=== PATIENT | male | born 1925 | race Caucasian/White ===

== ENCOUNTER 2017-07-22 15:32 | Observation (INO) | payer OTHER ==
[~2017-07-22] VITALS: Ht 172.7 cm; Wt 80.0 kg
[~2017-07-22 15:32] MED LIST: ALLO100 PO; AMLO10 PO; DIOV160T3 PO; GLYB1TAB50 PO; OMEP20CA5 PO; ZOCO80TA PO
[2017-07-22 15:38] VITALS: BP_SYST 21; BP_SYST 212; BP_DIAS 88; PULSE 42; RESP 14; TEMP 97.9; O2SAT 98
--- NOTE | 2017-07-22 16:20 | PD ---
HPI Chief Complaint: Cardiac Complaint Time Seen by Provider: 16:01 Travel History International Travel<30 days: No Contact w/Intl Traveler<30days: No Traveled to known affect area: No History of Present Illness HPI 89-year-old male presents to the emergency room for evaluation of dizziness. States he has been having dizziness since his supervisory aide's changed his blood pressure medications 2 weeks ago. Dizziness occurs throughout the day and only lasts about 30 seconds. States it resolves spontaneously or sometimes after he eats or takes a few shots of alcohol. Patient thought it may be due to hypoglycemia. He was feeling dizzy this morning so he called his primary care physician who told him to come in to be evaluated. While in the office, it was noted patient's heart rate was extremely low and he was told to come to the emergency room. Weigh Tank Operator is Dr. Akers. Patient believes his amlodipine was stopped and his clonidine was increased from 0.1 to 0.2 mg. He denies chest pain, shortness breath, or any other symptoms at this time. States he didn't even want to come today. PCP is Dr. Jennings. [facility] Past Medical History High Cholesterol: Yes Coronary Artery Disease: Yes (HOLTER MONITOR 2008) Diabetes: Yes Diminished Hearing: No GERD: Yes Hypertension: Yes Immunizations Current: Yes Triglycerides - High: Yes Past Surgical History Other Surgery: Yes (POLYPS REMOVED FROM COLON) Social History Alcohol Use: Yes (OCCASIONAL) Tobacco Use: No Substance Use: No Allergies-Medications (Allergen,Severity, Reaction): Coded Allergies: hydralazine (Verified Allergy, Unknown, 07/22/17) Reported Meds & Prescriptions Reported Meds & Active Scripts Active Reported Multi-Vitamin Daily (Multiple Vitamin) 1 Tab Tab 1 Tab PO DAILY Losartan (Losartan Potassium) 100 Mg Tab 100 Mg PO DAILY Lorazepam 0.5 Mg Tab 0.5 Mg PO DAILY PRN Hydrocodone-Acetaminophen 5-325 mg Tab 1 Tab PO Q4H PRN Glipizide ER (Glipizide) 2.5 Mg Linda 2.5 Mg PO DAILY Take with breakfast or first main meal of the day Clonidine (Clonidine HCl) 0.2 Mg Tab 0.2 Mg PO BID Calcitriol 0.25 Mcg Cap 0.25 Mcg PO DAILY Atorvastatin (Atorvastatin Calcium) 80 Mg Tab 80 Mg PO HS Aspirin 325 Mg Tab 325 Mg PO DAILY Allopurinol 100 Mg Tab 100 Mg PO DAILY Review of Systems Except as stated in HPI: all other systems reviewed are Neg Physical Exam Narrative GENERAL: Well-nourished, well-developed elderly male appearing younger than his stated age. Afebrile. Ambulatory. SKIN: Focused skin assessment warm/dry. HEAD: Normocephalic. EYES: No scleral icterus. No injection or drainage. NECK: Supple, trachea midline. No JVD or lymphadenopathy. CARDIOVASCULAR: Bradycardia. Regular rhythm without murmurs, gallops, or rubs. RESPIRATORY: Breath sounds equal bilaterally. No accessory muscle use. NEUROLOGICAL: Awake and alert. Cranial nerves II through XII intact. Motor and sensory grossly within normal limits. Five out of 5 muscle strength in all muscle groups. Normal speech. Data Data Last Documented VS Vital Signs Date Time Temp Pulse Resp B/P (MAP) Pulse Ox O2 Delivery O2 Flow Rate FiO2 07/22/17 17:11 40 18 170/72 (104) 100 Room Air 07/22/17 15:38 97.9 Orders Orders Electrocardiogram (07/22/17 15:44) Ckmb (Isoenzyme) Profile (07/22/17 15:44) Complete Blood Count With Diff (07/22/17 15:44) Comprehensive Metabolic Panel (07/22/17 15:44) Magnesium (Mg) (07/22/17 15:44) Prothrombin Time / Inr (Pt) (07/22/17 15:44) Act Partial Throm Time (Ptt) (07/22/17 15:44) Troponin I (07/22/17 15:44) Chest, Pa & Lat (07/22/17 15:44) Enalaprilat Inj (Vasotec Inj) (07/22/17 17:00) CKMB (07/22/17 16:15) CKMB% (07/22/17 16:15) Consult Cardiology (07/22/17 ) Equip, Isolation Cart (07/22/17 17:47) Admit Order (Ed Use Only) (07/22/17 17:57) Labs Laboratory Tests Test 07/22/17 16:15 White Blood Count 7.4 TH/MM3 Red Blood Count 3.45 MIL/MM3 Hemoglobin 10.8 GM/DL Hematocrit 33.4 % Mean Corpuscular Volume 96.7 FL Mean Corpuscular Hemoglobin 31.4 PG Mean Corpuscular Hemoglobin Concent 32.5 % Red Cell Distribution Width 15.5 % Platelet Count 137 TH/MM3 Mean Platelet Volume 11.8 FL Neutrophils (%) (Auto) 71.8 % Lymphocytes (%) (Auto) 20.6 % Monocytes (%) (Auto) 5.4 % Eosinophils (%) (Auto) 1.3 % Basophils (%) (Auto) 0.9 % Neutrophils # (Auto) 5.3 TH/MM3 Lymphocytes # (Auto) 1.5 TH/MM3 Monocytes # (Auto) 0.4 TH/MM3 Eosinophils # (Auto) 0.1 TH/MM3 Basophils # (Auto) 0.1 TH/MM3 CBC Comment DIFF FINAL Differential Comment Prothrombin Time 10.1 SEC Prothromb Time International Ratio 1.0 RATIO Activated Partial Thromboplast Time 28.7 SEC Blood Urea Nitrogen 62 MG/DL Creatinine 2.62 MG/DL Random Glucose 89 MG/DL Total Protein 6.6 GM/DL Albumin 3.0 GM/DL Calcium Level 7.4 MG/DL Magnesium Level 1.2 MG/DL Alkaline Phosphatase 91 U/L Aspartate Amino Transf (AST/SGOT) 26 U/L Alanine Aminotransferase (ALT/SGPT) 22 U/L Total Bilirubin 0.3 MG/DL Sodium Level 144 MEQ/L Potassium Level 5.5 MEQ/L Chloride Level 115 MEQ/L Carbon Dioxide Level 22.5 MEQ/L Anion Gap 7 MEQ/L Estimat Glomerular Filtration Rate 23 ML/MIN Protein Corrected Calcium 7.7 MG/DL Total Creatine Kinase 114 U/L Creatine Kinase MB 1.7 NG/ML Troponin I 0.08 NG/ML MDM Medical Decision Making Medical Screen Exam Complete: Yes Emergency Medical Condition: Yes Medical Record Reviewed: Yes Differential Diagnosis Bradycardia, dizziness, medication side effect Narrative Course 89-year-old male presents to the emergency room for evaluation of symptomatic bradycardia. States he has been feeling dizzy off and on for the past 2 weeks, especially in the morning. He went to his primary care physician's office earlier today to be evaluated for dizziness and he was noted to have an extremely low heart rate and told to go to the ED. Patient states his medication was just adjusted by his supervisory aide, Dr. Aguilar, 2 weeks ago. Amlodipine was stopped and clonidine was increased from 0.1 to 0.2 mg. Denies any chest pain, dizziness, or shortness of breath during evaluation. EKG shows sinus bradycardia with a rate of [address] changes. IV access established and basic labs obtained. Patient placed on cardiac telemetry. CBC is essentially unremarkable. CMP shows mildly elevated potassium of 5.5, elevated creatinine 2.62, low calcium of 7.4, elevated troponin of 0.08. I spoke to the supervisory aide on-call for Dr. Aguilar, Dr. Resendiz, who states patient should be monitored for improvement of bradycardia after cessation of medications and if that does not work, he will likely require pacemaker. Patient was initially resistant to staying but was counseled on the dangers of persistent bradycardia. I spoke to Dr. Godinez who agrees to admit this patient to her service. Diagnosis Primary Impression: Symptomatic sinus bradycardia Condition: Stable Shelley Jin Jul 22, 2017 16:20
[2017-07-22] MEDS ORDERED: LOSA100T PO (16:36)
[2017-07-22] MEDS ORDERED: ALLO100T PO (16:36)
[2017-07-22] MEDS ORDERED: CLON0.2T PO (16:36)
[2017-07-22] MEDS ORDERED: HYDR-3516 PO (16:36)
[2017-07-22] MEDS ORDERED: ASPI-183 PO (16:36)
[2017-07-22] MEDS ORDERED: LORA0.5T PO (16:36)
[2017-07-22] MEDS ORDERED: GLIP1TAB60 PO (16:36)
[2017-07-22] MEDS ORDERED: MULT-65 PO (16:36)
[2017-07-22] MEDS ORDERED: ATOR80TA45 PO (16:36)
[2017-07-22] MEDS ORDERED: CALC0.25 PO (16:36)
--- NOTE | 2017-07-22 16:39 | RADRPT ---
EXAM DATE/TIME: 07/22/2017 16:01 [place] COMPARISON: No previous studies available for comparison. INDICATIONS : Dizziness for 1 week. MEDICAL HISTORY : Hypertension. Hypercholesterolemia. Coronary artery disease. Diabetes. SURGICAL HISTORY : None. ENCOUNTER: Initial ACUITY: 1 week PAIN SCORE: 0/10 LOCATION: Bilateral chest FINDINGS: Mild airspace disease at the left lung base. Cardiac silhouette is minimally enlarged. Bony thorax is intact. CONCLUSION: 1. Trace left lung base airspace disease, likely atelectasis. 2. Mild cardiomegaly. Ike Krueger MD on July 22, 2017 at 16:36 Board Certified Radiologist. This report was verified electronically.
[2017-07-22 16:51] LABS: AUTOMATED NEUTROPHIL # 5.3 TH/MM3 (1.8-7.7); BASOPHIL # 0.1 TH/MM3 (0-0.2); BASOPHIL % 0.9 % (0.0-2.0); EOSINOPHIL # 0.1 TH/MM3 (0-0.4); EOSINOPHIL % 1.3 % (0.0-4.0); HEMATOCRIT 33.4 % (39.0-51.0); HEMOGLOBIN 10.8 GM/DL (13.0-17.0); LYMPH % 20.6 % (9.0-44.0); LYMPHOCYTE # 1.5 TH/MM3 (1.0-4.8); MEAN CELL VOLUME 96.7 FL (80.0-100.0); MEAN CORPUSCULAR HEMOGLOBIN 31.4 PG (27.0-34.0); MEAN CORPUSCULAR HGB CONC 32.5 % (32.0-36.0); MEAN PLATELET VOLUME 11.8 FL (7.0-11.0); MONO % 5.4 % (0.0-8.0); MONOCYTE # 0.4 TH/MM3 (0-0.9); NEUT % 71.8 % (16.0-70.0); PLATELET COUNT 137 TH/MM3 (150-450); RED BLOOD COUNT 3.45 MIL/MM3 (4.50-5.90); RED CELL DISTRIBUTION WIDTH 15.5 % (11.6-17.2); WHITE BLOOD COUNT 7.4 TH/MM3 (4.0-11.0)
[2017-07-22 16:58] LABS: PROTHROMBIN TIME - PATIENT 10.1 SEC (9.8-11.6)
[2017-07-22] MEDS ORDERED: ENALAPRILAT 1.25 MG/ML VIAL IV PUSH ONE (17:00)
[2017-07-22 17:11] VITALS: BP 170/72; PULSE 40; RESP 18; O2SAT 100
[2017-07-22 17:11] LABS: ALKALINE PHOSPHATASE 91 U/L (45-117); ALT (GPT) 22 U/L (12-78); AST (GOT) 26 U/L (15-37); BICARBONATE 22.5 MEQ/L (21.0-32.0); BLOOD UREA NITROGEN 62 MG/DL (7-18); CALCIUM 7.4 MG/DL (8.5-10.1); CALCIUM-PROTEIN CORRECTED 7.7 MG/DL (8.5-10.1); CHLORIDE 115 MEQ/L (98-107); CREATININE 2.62 MG/DL (0.60-1.30); GLOMERULAR FILTRATION RATE 23 ML/MIN (>89); GLUCOSE,RANDOM 89 MG/DL (74-106); MAGNESIUM 1.2 MG/DL (1.5-2.5); SODIUM (NA) 144 MEQ/L (136-145); TOTAL BILIRUBIN ADULT 0.3 MG/DL (0.2-1.0); TOTAL PROTEIN 6.6 GM/DL (6.4-8.2); TROPONIN I 0.08 NG/ML (0.02-0.05)
--- NOTE | 2017-07-22 17:52 | PD ---
Data Data Last Documented VS Vital Signs Date Time Temp Pulse Resp B/P (MAP) Pulse Ox O2 Delivery O2 Flow Rate FiO2 07/22/17 17:11 40 18 170/72 (104) 100 Room Air 07/22/17 15:38 97.9 Orders Orders Electrocardiogram (07/22/17 15:44) Ckmb (Isoenzyme) Profile (07/22/17 15:44) Complete Blood Count With Diff (07/22/17 15:44) Comprehensive Metabolic Panel (07/22/17 15:44) Magnesium (Mg) (07/22/17 15:44) Prothrombin Time / Inr (Pt) (07/22/17 15:44) Act Partial Throm Time (Ptt) (07/22/17 15:44) Troponin I (07/22/17 15:44) Chest, Pa & Lat (07/22/17 15:44) Enalaprilat Inj (Vasotec Inj) (07/22/17 17:00) CKMB (07/22/17 16:15) CKMB% (07/22/17 16:15) Consult Cardiology (07/22/17 ) Equip, Isolation Cart (07/22/17 17:47) Labs Laboratory Tests Test 07/22/17 16:15 White Blood Count 7.4 TH/MM3 Red Blood Count 3.45 MIL/MM3 Hemoglobin 10.8 GM/DL Hematocrit 33.4 % Mean Corpuscular Volume 96.7 FL Mean Corpuscular Hemoglobin 31.4 PG Mean Corpuscular Hemoglobin Concent 32.5 % Red Cell Distribution Width 15.5 % Platelet Count 137 TH/MM3 Mean Platelet Volume 11.8 FL Neutrophils (%) (Auto) 71.8 % Lymphocytes (%) (Auto) 20.6 % Monocytes (%) (Auto) 5.4 % Eosinophils (%) (Auto) 1.3 % Basophils (%) (Auto) 0.9 % Neutrophils # (Auto) 5.3 TH/MM3 Lymphocytes # (Auto) 1.5 TH/MM3 Monocytes # (Auto) 0.4 TH/MM3 Eosinophils # (Auto) 0.1 TH/MM3 Basophils # (Auto) 0.1 TH/MM3 CBC Comment DIFF FINAL Differential Comment Prothrombin Time 10.1 SEC Prothromb Time International Ratio 1.0 RATIO Activated Partial Thromboplast Time 28.7 SEC Blood Urea Nitrogen 62 MG/DL Creatinine 2.62 MG/DL Random Glucose 89 MG/DL Total Protein 6.6 GM/DL Albumin 3.0 GM/DL Calcium Level 7.4 MG/DL Magnesium Level 1.2 MG/DL Alkaline Phosphatase 91 U/L Aspartate Amino Transf (AST/SGOT) 26 U/L Alanine Aminotransferase (ALT/SGPT) 22 U/L Total Bilirubin 0.3 MG/DL Sodium Level 144 MEQ/L Potassium Level 5.5 MEQ/L Chloride Level 115 MEQ/L Carbon Dioxide Level 22.5 MEQ/L Anion Gap 7 MEQ/L Estimat Glomerular Filtration Rate 23 ML/MIN Protein Corrected Calcium 7.7 MG/DL Total Creatine Kinase 114 U/L Creatine Kinase MB 1.7 NG/ML Troponin I 0.08 NG/ML MDM Supervised Visit with HOLLIE: Yes Narrative Course The history, exam, and medical decision-making in the associated mid-level provider note were completed with my assistance. I reviewed and agree with the findings presented. I attest that I had a [id number] encounter with the patient on the same day, and personally performed and documented my assessment and findings in the medical record. *My assessment and Findings: 89-year-old male with symptomatic sinus bradycardia. Looks well. Likely due to medication effect. We'll admit for observation, reassess. Condition: Stable Mitchell Ho MD Jul 22, 2017 17:52
[2017-07-22] MEDS ORDERED: SODIUM CHLORIDE 0.9% FLUSH 10 ML FLUSH IV FLUSH PRN (18:00)
[2017-07-22] MEDS ORDERED: NALOXONE HCL 0.4 MG/ML AMP IV PUSH PRN (18:00)
[2017-07-22] MEDS ORDERED: CALCIUM GLUCONATE INJ 2 GM in DEXTROSE 5% IN WATER 100ML INJ 100 ML IV ONE ×2 (18:00)
[2017-07-22] MEDS ORDERED: ATROPINE SULFATE 1 MG/ML VIAL IV PUSH PRN (18:00)
[2017-07-22] MEDS: MAGNESIUM SULFATE 1 GM PREMIX 100 ML IV SCH (19:41)
[2017-07-22] MEDS ORDERED: GLUCAGON 1 MG/ML VIAL OTHER PRN (20:30)
[2017-07-22] MEDS ORDERED: DEXTROSE 50% IN WATER 50 ML VIAL(D50) IV PUSH PRN (20:30)
[2017-07-22] MEDS: INSULIN ASPART SUPPLEMENTAL SCALE SQ SCH (21:00)
[2017-07-22 21:09] VITALS: PULSE 88; RESP 15; TEMP 97.7; O2SAT 99
[2017-07-22] MEDS: SODIUM CHLORIDE 0.9% FLUSH 10 ML FLUSH IV FLUSH SCH (21:43)
[2017-07-22 22:02] VITALS: BP 163/88
[2017-07-23] VITALS (11 sets, daily range): BP systolic 136–220; BP diastolic 76–94; PULSE 43–110; RESP 15–24; TEMP 97.5–98.3; O2SAT 95–97
[2017-07-23 00:30] LABS: TROPONIN I 0.07 NG/ML (0.02-0.05)
[2017-07-23] MEDS ORDERED: NIFEdipine 30 MG SUSTAINED RELEASE TAB PO ONE ×2 (01:30→06:00)
--- NOTE | 2017-07-23 01:37 | HHI.HP ---
[facility] Primary Care Physician Shaggy Jennings MD Admission Diagnosis symptomatic bradycardia Diagnoses: (1) Symptomatic sinus bradycardia Chief Complaint: Dizziness and lightheadedness Travel History International Travel<30 Days: No Contact w/Intl Traveler <30 Da: No Traveled to Known Affected Are: No History of Present Illness Mr. Miller is a very pleasant 89 year-old male with a history of hyperlipidemia , hypertension, GERD, and type 2 diabetes mellitus who presented to the emergency room on 07/22/2017 to follow-up on an abnormal EKG done at his primary care physician Dr. Jennings's office. In the emergency room, a 12-lead EKG showed sinus bradycardia with right bundle branch block and a ventricular rate of 38 bpm. He is admitted for observation under the hospitalist team management for stabilization. The patient is seen in the CDU. He tells me that his amlodipine was discontinued because it caused severe ankle swelling and clonidine was doubled about 2-3 weeks ago by his digital communications manager Dr. Aguilar. Within days of this change, he noticed increasing episodes of dizziness that mostly occurred when he went from a sitting to standing position. He said he could feel his blood rising from his chest all the way up to his head and then he became extremely lightheaded and had to sit back down. He thought that his blood sugar might be low and so he would eat a piece of candy. His symptoms became progressively more frequent and he attempted to contact his digital communications manager. He had trouble reaching his digital communications manager and went to his primary care physician instead. When she saw what his heart rate was, she advised him to come straight to the emergency department for evaluation. His symptoms were not accompanied by diaphoresis, chest pain, shortness of breath, nausea, or vomiting. He denies any recent illness such as cold symptoms, cough, fever, or diarrhea. He states his symptoms have improved since he's been here at the hospital. Review of Systems Except as stated in HPI: all other systems reviewed are Neg Past Family Social History Past Medical History Hyperlipidemia Hypertension Gastroesophageal reflux disease Diabetes mellitus . Past Surgical History Cataract surgery, bilaterally Vasectomy . Reported Medications Reported Meds & Active Scripts Active Reported Multi-Vitamin Daily (Multiple Vitamin) 1 Tab Tab 1 Tab PO DAILY Losartan (Losartan Potassium) 100 Mg Tab 100 Mg PO DAILY Lorazepam 0.5 Mg Tab 0.5 Mg PO DAILY PRN Hydrocodone-Acetaminophen 5-325 mg Tab 1 Tab PO Q4H PRN Glipizide ER (Glipizide) 2.5 Mg Linda 2.5 Mg PO DAILY Take with breakfast or first main meal of the day Clonidine (Clonidine HCl) 0.2 Mg Tab 0.2 Mg PO BID Calcitriol 0.25 Mcg Cap 0.25 Mcg PO DAILY Atorvastatin (Atorvastatin Calcium) 80 Mg Tab 80 Mg PO HS Aspirin 325 Mg Tab 325 Mg PO DAILY Allopurinol 100 Mg Tab 100 Mg PO DAILY . Allergies: Coded Allergies: hydralazine (Verified Allergy, Unknown, 07/22/17) Active Ordered Medications Current Medications Enalaprilat (Vasotec Inj) 1.25 mg ONCE ONCE IV PUSH ; Start 07/22/17 at 17:00 ; Stop 07/22/17 at 17:01; Status DC Sodium Chloride (NS Flush) 2 ml UNSCH PRN IV FLUSH FLUSH AFTER USING IV ACCESS ; Start 07/22/17 at 18:00 Sodium Chloride (NS Flush) 2 ml BID IV FLUSH Last administered on 07/22/17t 21 :43; Start 07/22/17 at 21:00 Naloxone HCl (Narcan Inj) 0.4 mg UNSCH PRN IV PUSH SEE LABEL COMMENTS; Start 07/22/17 at 18:00 Atropine Sulfate (Atropine Inj) 0.5 mg Q2H PRN IV PUSH hr<35 or HR< 40symptomatic; Start 07/22/17 at 18:00 Magnesium Sulfate/ Dextrose 100 ml @ 100 mls/hr Q1H IV Last administered on 19:41; Start 07/22/17 at 18:00; Stop 07/22/17 at 19:59; Status DC Calcium Gluconate 2 gm/Dextrose 120 ml @ 120 mls/hr ONCE ONCE IV Last administered on 07/23/17 00:05; Start 07/22/17 at 18:00; Stop 07/22/17 at 18 :59; Status DC Dextrose (D50w (Vial) Inj) 50 ml UNSCH PRN IV PUSH HYPOGLYCEMIA-SEE COMMENTS; Start 07/22/17 at 20:30 Glucagon (Glucagon Inj) 1 mg UNSCH PRN OTHER HYPOGLYCEMIA-SEE COMMENTS; Start 07/22/17 at 20:30 Insulin Aspart (NovoLOG SUPPLEMENTAL SCALE) 1 ACHS SLIDING SCALE SQ ; Start at 21:00 Nifedipine (Procardia Xl) 30 mg ONCE ONCE PO Last administered on 07/23/17t 01:58; Start 07/23/17 at 01:30; Stop 07/23/17 at 01:36; Status DC . Family History Mother from natural causes His oldest sister had breast cancer Father age 65 from CVA . Social History Tobacco: Smoked from ages 20 through 28, 2 packs per day Alcohol: Occasional social use - especially when he goes out dancing Illicit Drugs: Denies . Physical Exam Vital Signs Vital Signs Date Time Temp Pulse Resp B/P (MAP) Pulse Ox O2 Delivery O2 Flow Rate FiO2 07/23/17 01:06 97.6 50 15 220/94 (136) 95 07/22/17 22:02 163/88 (113) 07/22/17 21:09 97.7 88 15 99 07/22/17 17:11 40 18 170/72 (104) 100 Room Air 07/22/17 17:02 39 17 99 Room Air 07/22/17 15:38 97.9 42 14 212/88 (129) 98 Physical Exam GENERAL: This is a very pleasant well-nourished, well-developed patient, in no apparent distress. SKIN: No rashes, ecchymoses or lesions. Cool and dry. HEAD: Atraumatic. Normocephalic. EYES: No scleral icterus. No injection or drainage. ENT: Nose without bleeding, purulent drainage. NECK: Trachea midline. No JVD. CARDIOVASCULAR: Bradycardic rate and normal rhythm without murmurs, gallops, or rubs. RESPIRATORY: Clear to auscultation. Breath sounds equal bilaterally. No wheezes , rales, or rhonchi. GASTROINTESTINAL: Abdomen soft, non-tender, nondistended. No guarding. MUSCULOSKELETAL: Extremities without clubbing, cyanosis, or edema. No calf tenderness. NEUROLOGICAL: Awake and alert. Motor and sensory grossly within normal limits. Normal speech. . Laboratory Laboratory Tests Test 07/22/17 16:15 07/22/17 23:18 White Blood Count 7.4 Red Blood Count 3.45 Hemoglobin 10.8 Hematocrit 33.4 Mean Corpuscular Volume 96.7 Mean Corpuscular Hemoglobin 31.4 Mean Corpuscular Hemoglobin Concent 32.5 Red Cell Distribution Width 15.5 Platelet Count 137 Mean Platelet Volume 11.8 Neutrophils (%) (Auto) 71.8 Lymphocytes (%) (Auto) 20.6 Monocytes (%) (Auto) 5.4 Eosinophils (%) (Auto) 1.3 Basophils (%) (Auto) 0.9 Neutrophils # (Auto) 5.3 Lymphocytes # (Auto) 1.5 Monocytes # (Auto) 0.4 Eosinophils # (Auto) 0.1 Basophils # (Auto) 0.1 CBC Comment DIFF FINAL Differential Comment Prothrombin Time 10.1 Prothromb Time International Ratio 1.0 Activated Partial Thromboplast Time 28.7 Blood Urea Nitrogen 62 Creatinine 2.62 Random Glucose 89 Total Protein 6.6 Albumin 3.0 Calcium Level 7.4 Magnesium Level 1.2 Alkaline Phosphatase 91 Aspartate Amino Transf (AST/SGOT) 26 Alanine Aminotransferase (ALT/SGPT) 22 Total Bilirubin 0.3 Sodium Level 144 Potassium Level 5.5 Chloride Level 115 Carbon Dioxide Level 22.5 Anion Gap 7 Estimat Glomerular Filtration Rate 23 Protein Corrected Calcium 7.7 Total Creatine Kinase 114 54 Creatine Kinase MB 1.7 Troponin I 0.08 0.07 Result Diagram: 07/22/17 1615 07/22/17 1615 Imaging Last Impressions Chest X-Ray 07/22/17 1544 Signed Impressions: Service Date/Time: Saturday, July 22, 2017 16:01 - CONCLUSION: 1. Trace left lung base airspace disease, likely atelectasis. 2. Mild cardiomegaly. Ike Krueger MD . Caprini VTE Risk Assessment Caprini VTE Risk Assessment: Mod/High Risk (score >= 2) Caprini Risk Assessment Model Point Value = 1 Point Value = 2 Point Value = 3 Point Value = 5 Age 41-60 Minor surgery BMI > 25 kg/m2 Swollen legs Varicose veins or History of unexplained or recurrent spontaneous Oral contraceptives or hormone replacement Sepsis (< 1 month) Serious lung disease, including pneumonia (< 1 month) Abnormal pulmonary function Acute myocardial infarction Congestive heart failure (< 1 month) History of inflammatory bowel disease Medical patient at bed rest Age 61-74 Arthroscopic surgery Major open surgery (> 45 min) Laparoscopic surgery (> 45 min) Malignancy Confined to bed (> 72 hours) Immobilizing plaster cast Central venous access Age >= 75 History of VTE Family history of VTE Factor V Leiden Prothrombin [id number] Lupus anticoagulant Anticardiolipin antibodies Elevated serum homocysteine Heparin-induced thrombocytopenia Other congenital or acquired thrombophilia Stroke (< 1 month) Elective arthroplasty Hip, pelvis, or leg fracture Acute spinal cord injury (< 1 month) Prophylaxis Regimen Total Risk Factor Score Risk Level Prophylaxis Regimen 0-1 Low Early ambulation 2 Moderate Order ONE of the following: *Sequential Compression Device (SCD) *Heparin 5000 units SQ BID 3-4 Higher Order ONE of the following medications: *Heparin 5000 units SQ TID *Enoxaparin/Lovenox 40 mg SQ daily (WT < 150 kg, CrCl > 30 mL/min) *Enoxaparin/Lovenox 30 mg SQ daily (WT < 150 kg, CrCl > 10-29 mL/min) *Enoxaparin/Lovenox 30 mg SQ BID (WT < 150 kg, CrCl > 30 mL/min) AND/OR *Sequential Compression Device (SCD) 5 or more Highest Order ONE of the following medications: *Heparin 5000 units SQ TID (Preferred with Epidurals) *Enoxaparin/Lovenox 40 mg SQ daily (WT < 150 kg, CrCl > 30 mL/min) *Enoxaparin/Lovenox 30 mg SQ daily (WT < 150 kg, CrCl > 10-29 mL/min) *Enoxaparin/Lovenox 30 mg SQ BID (WT < 150 kg, CrCl > 30 mL/min) AND *Sequential Compression Device (SCD) Assessment and Plan Problem List: (1) Symptomatic sinus bradycardia ICD Code: R00.1 - Bradycardia, unspecified Status: Acute (2) Type 2 diabetes mellitus ICD Code: E11.9 - Type 2 diabetes mellitus without complications Status: Chronic (3) Hypertensive urgency ICD Code: I16.0 - Hypertensive urgency (4) Hypomagnesemia ICD Code: E83.42 - Hypomagnesemia (5) Hyperkalemia ICD Code: E87.5 - Hyperkalemia (6) Elevated troponin I level ICD Code: R74.8 - Abnormal levels of other serum enzymes (7) Acute on chronic renal failure ICD Code: N17.9 - Acute kidney failure, unspecified; N18.9 - Chronic kidney disease, unspecified Assessment and Plan Mr. Miller is a very pleasant 89 year-old male with a history of hyperlipidemia , hypertension, GERD, and type 2 diabetes mellitus who presented to the emergency room on 07/22/2017 to follow-up on an abnormal EKG done at his primary care physician Dr. Jennings's office. In the emergency room, a 12-lead EKG showed sinus bradycardia with right bundle branch block and a ventricular rate of 38 bpm. He is admitted for observation under the hospitalist team management for stabilization. Symptomatic bradycardia - Hold home clonidine - Heart rate improved at the time of my visit - mid to high 50s to 60s - patient no longer symptomatic - consult Cardiology - ER PA discussed with Dr. Resendiz recreational sports director for Dr. Aguilar - continuous cardiac telemetry to monitor rate and rhythm - Atropine 0.5 mg IV push every 2 hours as needed Elevated Troponin I - Troponin I mildly elevated 0.08, 0.07 - likely secondary to renal disease; CK within normal parameters - 12 lead EKG personally reviewed; shows sinus dedrick rate of 38 with right BBB; no ischemic changes seen - will trend cardiac enzymes and EKGs to r/o ACS Type 2 Diabetes Mellitus - Resume home Glipizide - Heart healthy diet with 1800 ADA restrictions - Accu-Cheks before meals and at bedtime with low-dose NovoLog sliding scale coverage - Hypoglycemia protocol - Monitor trends and blood glucose readings and adjust treatments as indicated Hypertensive urgency - BP 212/88 on admission; 220/94 shortly after my visit - I have added Procardia XL 30 mg p.o. x on dose; hypertension is difficult to manage given patient's hydralazine allergy, symptomatic bradycardia, adverse reaction to amlodipine (ankle swelling), and renal disease - will follow trends in blood pressure and adjust accordingly - appreciate any recommendations from cardiology Hypomagnesemia - Initial magnesium level I.2 - Replaced in ED - Recheck in a.m. and follow results - replace as indicated Hyperkalemia - Initial potassium was 5.5 - however specimen was hemolyzed - Recheck with BMP in a.m. and follow results - treat as indicated Acute on chronic kidney failure - Uncertain of her baseline - worse when compared to labs from 2009 - BUN 62, creatinine 2.62, estimated GFR 23 - Hold losartan - Avoid nephrotoxins - Repeat BMP in a.m. and follow results - consult nephrology if needed Mild Anemia - most likely related to chronic kidney disease Mild thrombocytopenia - Labs look relatively stable when compared to 2010 labs - Hemoglobin 10.8, hematocrit 33.4, platelets 137,000 - Monitor CBC and follow results/trends DVT prophylaxis - Heparin 5000 units subq q8h Discussed Condition With Dr. Pacheco, RN, and patient . Yuly Agrawal Jul 23, 2017 01:37
[2017-07-23] MEDS: MAGNESIUM SULFATE 1 GM PREMIX 100 ML IV SCH (03:53)
[2017-07-23] MEDS: INSULIN ASPART SUPPLEMENTAL SCALE SQ SCH ×4 (08:00→21:00)
[2017-07-23 08:13] LABS: AUTOMATED NEUTROPHIL # 5.7 TH/MM3 (1.8-7.7); BASOPHIL # 0.1 TH/MM3 (0-0.2); EOSINOPHIL # 0.1 TH/MM3 (0-0.4); EOSINOPHIL % 1.6 % (0.0-4.0); HEMATOCRIT 30.4 % (39.0-51.0); LYMPH % 17.8 % (9.0-44.0); LYMPHOCYTE # 1.4 TH/MM3 (1.0-4.8); MEAN CELL VOLUME 95.4 FL (80.0-100.0); MEAN CORPUSCULAR HEMOGLOBIN 31.6 PG (27.0-34.0); MEAN CORPUSCULAR HGB CONC 33.1 % (32.0-36.0); MONO % 5.5 % (0.0-8.0); MONOCYTE # 0.4 TH/MM3 (0-0.9); NEUT % 74.1 % (16.0-70.0); PLATELET COUNT 107 TH/MM3 (150-450); RED BLOOD COUNT 3.18 MIL/MM3 (4.50-5.90); WHITE BLOOD COUNT 7.7 TH/MM3 (4.0-11.0)
[2017-07-23 08:43] LABS: BICARBONATE 22.6 MEQ/L (21.0-32.0); CREATININE 2.44 MG/DL (0.60-1.30)
[2017-07-23 08:48] LABS: TROPONIN I 0.07 NG/ML (0.02-0.05)
[2017-07-23] MEDS: SODIUM CHLORIDE 0.9% FLUSH 10 ML FLUSH IV FLUSH SCH ×2 (08:59→22:01)
[2017-07-23] MEDS: ASPIRIN 325 MG TAB PO SCH (08:59)
[2017-07-23] MEDS: HEPARIN SODIUM - SQ 10,000 UNITS/ML VIAL SQ SCH ×3 (09:01→22:00)
[2017-07-23] MEDS: GLIPIZIDE 2.5 MG PO SCH (09:01)
--- NOTE | 2017-07-23 11:42 | HHI.PR ---
Subjective Remarks f/u for bradycardia patient stated he feels a lot better. Lightheadedness very mild now. Denied any CP, palpitations or shortness of breathing. He stated that he has very good urine output. Patient has no other complaints. He is very anxious to go home. I spoke to his over the phone at his bedside. Updated her on the plan. Objective Vitals Vital Signs Date Time Temp Pulse Resp B/P (MAP) Pulse Ox O2 Delivery O2 Flow Rate FiO2 07/23/17 08:18 97.5 106 22 148/82 (104) 96 07/23/17 05:08 97.9 57 17 204/83 (123) 97 07/23/17 01:06 97.6 50 15 220/94 (136) 95 07/22/17 22:02 163/88 (113) 07/22/17 21:09 97.7 88 15 99 07/22/17 17:11 40 18 170/72 (104) 100 Room Air 07/22/17 17:02 39 17 99 Room Air 07/22/17 15:38 97.9 42 14 212/88 (129) 98 I/O 07/22/17 07/22/17 07/22/17 07/23/17 07/23/17 07/23/17 07:00 15:00 23:00 07:00 15:00 23:00 Output Total 550 ml Balance -550 ml Output Urine Total 550 ml Result Diagram: 07/23/17 0743 07/23/17 0743 Imaging Last Impressions Chest X-Ray 07/22/17 1544 Signed Impressions: Service Date/Time: Saturday, July 22, 2017 16:01 - CONCLUSION: 1. Trace left lung base airspace disease, likely atelectasis. 2. Mild cardiomegaly. Ike Krueger MD Objective Remarks GENERAL: in NAD CARDIOVASCULAR: Regular rate and rhythm without murmurs, gallops, or rubs. RESPIRATORY: Breath sounds equal bilaterally. No accessory muscle use. GASTROINTESTINAL: Abdomen soft, non-tender, nondistended. Medications and IVs Current Medications Enalaprilat (Vasotec Inj) 1.25 mg ONCE ONCE IV PUSH ; Start 07/22/17 at 17:00 ; Stop 07/22/17 at 17:01; Status DC Sodium Chloride (NS Flush) 2 ml UNSCH PRN IV FLUSH FLUSH AFTER USING IV ACCESS ; Start 07/22/17 at 18:00 Sodium Chloride (NS Flush) 2 ml BID IV FLUSH Last administered on 07/23/17 08 :59; Start 07/22/17 at 21:00 Naloxone HCl (Narcan Inj) 0.4 mg UNSCH PRN IV PUSH SEE LABEL COMMENTS; Start 07/22/17 at 18:00 Atropine Sulfate (Atropine Inj) 0.5 mg Q2H PRN IV PUSH hr<35 or HR< 40symptomatic; Start 07/22/17 at 18:00 Magnesium Sulfate/ Dextrose 100 ml @ 100 mls/hr Q1H IV Last administered on 03:53; Start 07/22/17 at 18:00; Stop 07/22/17 at 19:59; Status DC Calcium Gluconate 2 gm/Dextrose 120 ml @ 120 mls/hr ONCE ONCE IV Last administered on 07/23/17 00:05; Start 07/22/17 at 18:00; Stop 07/22/17 at 18 :59; Status DC Dextrose (D50w (Vial) Inj) 50 ml UNSCH PRN IV PUSH HYPOGLYCEMIA-SEE COMMENTS; Start 07/22/17 at 20:30 Glucagon (Glucagon Inj) 1 mg UNSCH PRN OTHER HYPOGLYCEMIA-SEE COMMENTS; Start 07/22/17 at 20:30 Insulin Aspart (NovoLOG SUPPLEMENTAL SCALE) 1 ACHS SLIDING SCALE SQ ; Start at 21:00 Nifedipine (Procardia Xl) 30 mg ONCE ONCE PO Last administered on 07/23/17 01:58; Start 07/23/17 at 01:30; Stop 07/23/17 at 01:36; Status DC Heparin Sodium (Porcine) (Heparin Inj) 5,000 units Q8HR SQ Last administered on 07/23/17 09:01; Start 07/23/17 at 09:00 Atorvastatin Calcium (Lipitor) 80 mg HS PO ; Start 07/23/17 at 21:00 Aspirin (Aspirin) 325 mg DAILY PO Last administered on 07/23/17 08:59; Start 07/23/17 at 09:00 Patient Own Medication PT OWN MED: GLIPIZ... DAILY PO ; Start 07/23/17 at 09:00 Nifedipine (Procardia Xl) 30 mg ONCE ONCE PO Last administered on 07/23/17t 06:19; Start 07/23/17 at 06:00; Stop 07/23/17 at 06:01; Status DC A/P Problem List: (1) Symptomatic sinus bradycardia ICD Code: R00.1 - Bradycardia, unspecified Status: Acute (2) Type 2 diabetes mellitus ICD Code: E11.9 - Type 2 diabetes mellitus without complications Status: Chronic (3) Hypertensive urgency ICD Code: I16.0 - Hypertensive urgency (4) Hypomagnesemia ICD Code: E83.42 - Hypomagnesemia (5) Hyperkalemia ICD Code: E87.5 - Hyperkalemia (6) Elevated troponin I level ICD Code: R74.8 - Abnormal levels of other serum enzymes (7) Acute on chronic renal failure ICD Code: N17.9 - Acute kidney failure, unspecified; N18.9 - Chronic kidney disease, unspecified Assessment and Plan Mr. Miller is a very pleasant 89 year-old male with a history of hyperlipidemia , hypertension, GERD, and type 2 diabetes mellitus who presented to the emergency room on 07/22/2017 to follow-up on an abnormal EKG done at his PCP Symptomatic bradycardia -Clonidine held and last heart rate in the low 100s. -Symptoms have improved drastically. -Pending recommendations from patient's rib knitter. Elevated Troponin I - Troponin I mildly elevated 0.08, 0.07 - likely secondary to renal disease; CK within normal parameters -Asymptomatic. Troponin levels are flat. -Unlikely ACS. Management per rib knitter. Type 2 Diabetes Mellitus -Continue glipizide. - Heart healthy diet with 1800 ADA restrictions - Accu-Cheks before meals and at bedtime with low-dose NovoLog sliding scale coverage - Hypoglycemia protocol - Monitor trends and blood glucose readings and adjust treatments as indicated Hypertensive urgency - BP 212/88 on admission; 220/94 shortly after my visit -Improving on Procardia. Hypomagnesemia - Replenish as needed. Hyperkalemia - Initial potassium was 5.5 - however specimen was hemolyzed - Last potassium is 4.8. Acute on chronic kidney failure - Uncertain of her baseline. No recent baseline. - Currently has been stable. Patient also has good urine output. Most likely this is his baseline. Losartan was also held. - Avoid nephrotoxins -Creatinine stable and patient is good urine output. Can follow up as outpatient with his primary care physician with a repeat creatinine. Patient's is already aware and she stated that she will make an appointment now for early next week. Mild Anemia - most likely related to chronic kidney disease Mild thrombocytopenia -No signs of active bleeding. Stable. Follow-up as outpatient. DVT prophylaxis - Heparin 5000 units subq q8h Discharge Planning Once patient is medically cleared by rib knitter can be discharged home. Alessandra Montano MD Jul 23, 2017 11:42
[2017-07-23] MEDS ORDERED: MUPIROCIN 2% OINT 1 APPLIC/GM SYR NASAL SCH (13:00)
[2017-07-23] MEDS ORDERED: ceFAZolin 2 GM PREMIX 50 ML IV SCH (13:00)
[2017-07-23] MEDS ORDERED: CHLORHEXIDINE GLUCONATE 2 % 1 PACK (2 CLOTHS) TOP SCH (13:00)
[2017-07-23] MEDS ORDERED: POVIDONE IODINE 5% (ANTISEPSIS KIT) 4 APPLICATIONS EACH NARE SCH (13:00)
[2017-07-23] MEDS ORDERED: VANCOMYCIN INJ 1,000 MG in SODIUM CHLOR 0.9% 250 ML INJ 250 ML IV SCH (13:00)
[2017-07-23] MEDS: DILTIAZEM HCL 30 MG TAB PO SCH ×3 (13:56→22:01)
--- NOTE | 2017-07-23 15:35 | EKG ---
Date Performed: 07/22/2017 Time Performed: 15:53:15 PTAGE: 89 years EKG: SINUS BRADYCARDIA BORDERLINE LEFT AXIS DEVIATION RIGHT BUNDLE BRANCH BLOCK ABNORMAL ECG PREVIOUS TRACING : 04/22/2010 18.58 Compared to prior tracing no significant change DOCTOR: José Miguel Obando Interpretating Date/Time 07/23/2017 15:33:04
--- NOTE | 2017-07-23 17:42 | MB ---
cc: RAFFAELE FIGUEROA MD DATE OF CONSULTATION 07/23/17 REASON FOR CONSULTATION Sick sinus syndrome/new onset atrial fibrillation. HISTORY OF PRESENT ILLNESS The patient is a very pleasant 89-year old gentleman who was seen in the past who presented with dizziness and was found to be bradycardic in the upper 30s. Since being admitted, he has since converted into rapid atrial fibrillation. He says he still feels mildly dizzy but improved compared with admission. No chest pain, shortness of breath or syncope. PAST MEDICAL HISTORY 1. Mitral regurgitation. 2. Aortic stenosis. 3. Hypertension. 4. Right bundle-branch block. MEDICATIONS Current, 1. Atorvastatin 80 mg q.h.s. 2. Aspirin 325 mg daily. ALLERGIES HYDRALAZINE PHYSICAL EXAMINATION VITAL SIGNS: Afebrile, pulse 106, respiratory 22, BP 148/82 satting 96 on room air. GENERAL: A pleasant elderly gentleman in no distress. NECK: No JVD. LUNGS: Clear to auscultation bilaterally. CARDIOVASCULAR: Irregular irregular rhythm with a mildly rapid rate, a 2-3/6 systolic murmur is appreciated. ABDOMEN: Benign. EXTREMITIES: No edema. LABORATORY DATA Sodium 143, potassium 4.3, chloride 111, bicarb 22.6, BUN 58, creatinine 2.44, glucose 94, troponin is flat at 0.08, 0.07, 0.07. IMAGING STUDIES Initial EKG showed sinus bradycardia at 39 with right bundle-branch block. Current telemetry shows mildly rapid atrial fibrillation in the one teens to 120s. IMAGING STUDIES Chest x-ray - atelectasis and mild cardiomegaly. IMPRESSION Sick sinus syndrome. Patient with both sinus bradycardia and rapid atrial fibrillation has sick sinus syndrome and symptomatic as he presented with significant lightheadedness. I discussed his options at length and recommended pacemaker to which he agrees. I will have one of my partners plan for this procedure. He will require full anticoagulation, but given his pending pacemaker I will hold off on this until the procedure has been completed. He will also require rate control medication and I will start low dose oral diltiazem, but again given his significant sinus bradycardia we will have to be gentle until the pacemaker of been placed. Thank you for the opportunity to participate in this patient's care. MD RAMILA Garrison /11:45 AM /5:08 PM
[2017-07-23] MEDS: ATORVASTATIN 80 MG TAB PO SCH (22:01)
[2017-07-23] MEDS: TEMAZEPAM 7.5 MG CAP PO PRN (23:45)
[2017-07-23] MEDS: SODIUM CHLOR 0.9% 1000 ML INJ 1,000 ML IV SCH (23:47)
[2017-07-24] VITALS (17 sets, daily range): BP systolic 130–195; BP diastolic 60–98; PULSE 60–114; RESP 17–18; TEMP 98–99; O2SAT 94–98
[2017-07-24] MEDS ORDERED: SODIUM CHLORID 0.9% 500 ML IV PRN (01:15)
[2017-07-24] MEDS ORDERED: CHLORHEXIDINE GLUCONATE 2 % 1 PACK (2 CLOTHS) TOPICAL PRN (01:15)
[2017-07-24] MEDS ORDERED: LACTATED RINGER'S 1000 ML IV PRN (01:15)
[2017-07-24] MEDS ORDERED: POVIDONE IODINE 5% (ANTISEPSIS KIT) 4 APPLICATIONS EACH NARE PRN (01:15)
[2017-07-24] MEDS ORDERED: METOPROLOL TARTRATE 25 MG TAB PO PRN (01:15)
[2017-07-24] MEDS: HEPARIN SODIUM - SQ 10,000 UNITS/ML VIAL SQ SCH ×3 (05:33→21:10)
[2017-07-24] MEDS ORDERED: PROPOFOL 200 MG/20 ML AMP ONE (07:16)
[2017-07-24] MEDS ORDERED: MIDAZOLAM HCL 2 MG/2 ML VIAL ONE (07:16)
[2017-07-24] MEDS ORDERED: VANCOMYCIN 500 MG VIAL ONE (07:18)
[2017-07-24] MEDS ORDERED: LIDOCAINE HCL 2% 50 ML VIAL ONE (07:18)
[2017-07-24] MEDS ORDERED: ceFAZolin INJ 1,000 MG VIAL ONE (07:18)
[2017-07-24] MEDS ORDERED: VANCOMYCIN HCL 1000 MG VIAL ONE (07:18)
[2017-07-24] MEDS ORDERED: SODIUM CHLOR 0.9% 250 ML INJ 250 ML ONE (07:18)
[2017-07-24 07:41] LABS: AUTOMATED NEUTROPHIL # 5.5 TH/MM3 (1.8-7.7); BASOPHIL # 0.1 TH/MM3 (0-0.2); BASOPHIL % 1.5 % (0.0-2.0); EOSINOPHIL # 0.1 TH/MM3 (0-0.4); EOSINOPHIL % 1.9 % (0.0-4.0); HEMATOCRIT 29.9 % (39.0-51.0); HEMOGLOBIN 10.3 GM/DL (13.0-17.0); LYMPH % 17.4 % (9.0-44.0); LYMPHOCYTE # 1.3 TH/MM3 (1.0-4.8); MEAN CELL VOLUME 95.3 FL (80.0-100.0); MEAN CORPUSCULAR HEMOGLOBIN 32.8 PG (27.0-34.0); MEAN CORPUSCULAR HGB CONC 34.4 % (32.0-36.0); MONO % 5.3 % (0.0-8.0); MONOCYTE # 0.4 TH/MM3 (0-0.9); NEUT % 73.9 % (16.0-70.0); PLATELET COUNT 126 TH/MM3 (150-450); RED BLOOD COUNT 3.13 MIL/MM3 (4.50-5.90); RED CELL DISTRIBUTION WIDTH 15.3 % (11.6-17.2); WHITE BLOOD COUNT 7.5 TH/MM3 (4.0-11.0)
[2017-07-24] MEDS: INSULIN ASPART SUPPLEMENTAL SCALE SQ SCH ×4 (08:00→21:00)
[2017-07-24 08:06] LABS: BICARBONATE 22.9 MEQ/L (21.0-32.0); CALCIUM 7.7 MG/DL (8.5-10.1); CREATININE 2.46 MG/DL (0.60-1.30); MAGNESIUM 1.3 MG/DL (1.5-2.5)
--- NOTE | 2017-07-24 08:51 | CATHPROC ---
[facility] HIS Report Study Information Study Number Admission Scheduled Start Study Start [id number] Jul 22 2017 5:59PM 07/23/2017 Jul 24 2017 7:05AM [place] Service Cardiac Pacer/ICD Admit Source Facility Department Emergency department [facility] - Collar Shaper Operator Physician and Clinical Staff Initial MD Alvarez, Gerardo Member Of Parliament Jess Vargas RN Other Anesthesia, LOOP TACKER Recorder Annette House,BSRN Recorder Fior Liz ,REESEN Scrub Tram Montgomery,(R) TECH2 Procedures Performed Procedure Lead Insertion Equipment Time Taxi Dancer Description Size Mfg Part Number Used/Scraped [id number] 07:09 MEDLINE INDUSTRIES SUTURE, STRIP PLUS 1/2" * Used *[id number] 07:09 MEDLINE PACER ADHESIVE, MASTISOL 2/3CC 2/3CC 0523-48 Used 07:09 MEDLINE PACER VIGIL, LIMB * 2530 *[id number] Used [id number] 07:09 MEDLINE PACER PACK, PACER CUSTOM * Used *[id number] 07:09 MEDLINE PACER PEN, SKIN DUAL W/ RULER * Used *[id number] 07:31 [employer] PACER SAFE SHEATH, FR7, 13CM FR 7 [id number] Used 07:31 [employer] MEDICAL PACER SAFE SHEATH, FR7, 13CM FR 7 [id number] Used 07:35 Needle Sponge Count 2 22 Used 08:18 Needle Sponge Count 2 22 Used 08:18 Needle Sponge Count 30 1 Used 07:35 Needle Sponge Count 30 1 Used 08:18 Needle Sponge Count 4 4 Used 07:35 Needle Sponge Count 4 4 Used 07:57 NYCOMED OMNIPAQUE, 350 MG, 50ML 50ML [id number] Used [id number] *[id number] SUTURE, 2-0 VICRYL [SH] ([id number]) SUTURE, 3-0 VICRYL [SH] ([id number]) SUTURE, 4-0 MONOCRYL [PS2] (Y496G) [id number] 07:09 [place] [employer],WARM AIR CCL * Used *[id number] [facility] PAD, ELECTROSURGICAL 07:09 * [id number] *[id number] Used SURGICAL GROUNDING ORANGE LEAD, CAPSURE FIX NOVUS, 4076-45CM 07:51 VITATRON [employer] 45CM Used 45CM *[id number] LEAD, CAPSURE FIX NOVUS, 4076-52CM 07:50 VIT[employer]RON [employer] 52CM Used 52CM *[id number] PACEMAKER, ADVISShanda NAJERA MRI 08:11 [employer] OEA-DDDR [id number] Used SURESCAN [id number] 07:09 [employer]. / * Used *[id number] Equipment Model, Serial, Lot Number and Expiration Data Description Model Number Serial Number Lot Number Expiration Date LEAD, CAPSURE FIX NOVUS, 45CM 4076-45 [id number] 06-09-2019 LEAD, CAPSURE FIX NOVUS, 52CM 4076-52 [id number] 05-27-2019 PACEMAKER, ADVISShanda NAJERA MRI [id number] 12-14-2018 SURESCAN History: Allergies Allergy Reaction hydralazine History: Risk Factors Family History of Hypertension Dyslipidemia Previous LA Previous Heart Failure Premature CAD Yes Yes No No No Prior Valve Prior PCI Prior CABG Surgery No No No Cerebrovascular Peripheral Artery Chronic Lung On Dialysis Diabetes Diabetes Therapy Disease Disease Disease No No No No Yes Oral Labs Hgb (g/dl) Hct (%) RBC (MIL/MM3) WBC (l/cumm) Platelets (thousands) 11.60-17.00 35.00-51.00 4.00-5.90 4.00-11.00 150.00-450.00 10.0 30 3.1 7.7 107 Glucose (mg/dl) BUN (mg/dl) Creatinine (mg/dl) BUN:Creatinine (1:x) 74.00-106.00 7.00-18.00 0.50-1.30 10.00-20.00 94 58 2.4 24.2 Na (meq/l) K (meq/l) 136.00-145.00 3.50-5.10 143 4.8 Troponin I (ng/ml) Troponin T (ng/ml) CPK (u/l) CPK-MB (ng/ML) 0.02-0.05 0.40-2.10 26.00-308.00 0.50-3.60 0.08 0.07 114 1.7 Medication Medication Total Dose (Bolus/Oral) Medication Total Dosage/Unit 2% XYLOCAINE 50 mL Medications (Bolus/Oral) Medication Time Given Dosage/Unit Administered By Reason 2% XYLOCAINE 07/24/2017 7:45:32 AM 50 mL Gerardo Alvarez For pain 50 mL 2% XYLOCAINE given in lab by Gerardo Alvarez via Subcutaneous. Ordered by Gerardo Alvarez. Reason: For pain. left upper chest Medication (Drip) Medication Time Given Dosage/Unit Concentration/Unit Diluent (ml) Solution ANCEF 07/24/2017 7:27:00 AM 2 g 2 g ANCEF given in lab by Anesthesia, NICOLE via Peripheral IV. Ordered by Gerardo Alvarez. Reason: As pe r physicians verbal order. IV Solutions 07/24/2017 7:16:38 AM 50 mL (IV) NaCl .9 IV Solutions given in lab by Jess Vargas RN in Right Forearm via Peripheral IV. Pump/Drip Flow using NaCl .9. IV Solutions 07/24/2017 7:17:21 AM 50 mL (IV) NaCl .9 IV Solutions given in lab by Jess Vargas RN in Left Forearm via Peripheral IV. Pump/Drip Flow u sing NaCl .9. VANCOMYCIN DRIP 07/24/2017 7:27:10 AM 1 g 1 g VANCOMYCIN DRIP given in lab by Anesthesia, LOOP TACKER via Peripheral IV. Ordered by Gerardo Alvarez. [place] son: As per physicians verbal order. Initial Case Assessment Cardiovascular HR Rhythm NIBP Chest Pain 91 afib 191/82 0 Edema Present Skin color Skin None Normal Warm Dry Circulatory - Right Pulses Radial 2 Scale (0,1,2,3,4,d) Circulatory - Left Pulses Radial 2 Scale (0,1,2,3,4,d) Neurological State Oriented to time-place- Alert Moves all extremities person Respiration - General Respiration Rate SpO2 (%) O2 (lpm) (B/min) 16 96 0 Final Case Assessment Cardiovascular HR NIBP Chest Pain 83 144/65 0 Edema Present Skin color Skin None Normal Warm Dry Neurological State Oriented to time-place- Alert Moves all extremities person Respiration - General Respiration Rate SpO2 (%) (B/min) 20 99 Chronological Log Time Study Chronological Log 7:09:24 Patient arrived via Bed. 7:09:26 Patient Name, D.O.B, / Armband Verified By R.N. 7:09:30 Anesthesia at bedside. Assumes care of patient. 7:09:53 Consent signed by the physician and the patient and verified by the Collar Shaper Operator staff. 7:12:27 Pre-op and post- op instructions given; patient acknowledges understanding of instructions. 7:12:41 Presedation assessment performed by Collar Shaper Operator RN. 7:13:01 Patient has been NPO for More than 6Hrs. 7:13:03 Skin Breakdown- 7:13:10 Patient Warmer Placed on the Table. 7:13:12 Disposable Defibrillator Pads Placed On Patient. 7:13:16 Juan Prominences Protected 7:13:24 A # 22 IV was noted in the Forearm (left). 7:16:17 A # 20 IV was noted in the Forearm (right). 7:16:38 IV Solutions given in lab by Jess Vargas RN in Right Forearm via Peripheral IV. Pump/D rip Flow using NaCl .9. 7:17:21 IV Solutions given in lab by Jess Vargas RN in Left Forearm via Peripheral IV. Pump/Dr ip Flow using NaCl .9. 7:17:50 History and physical on the chart or being dictated. Assessment: Initial Case, HR=91 BPM, Rhythm=afib, LCYI=815/82 mmhg, Chest Pain=0, Edema=None, Color=Normal, Skin = Warm, Dry Right Pulses: Radial=2 7:17:51 Left Pulses: Radial=2 Neurological: State=Alert, Ox3, HASSAN Respiration: Resp=16 B/min, SpO2=96 %, O2=0 lpm 7:22:16 Table restraints applied according to hospital policy 2 g ANCEF given in lab by Anesthesia, LOOP TACKER via Peripheral IV. Ordered by Gerardo Alvarez. Reason: As per physicians 7:27:00 verbal order. 7:27:02 Left Upper Chest Prepped Times Two. 1 g VANCOMYCIN DRIP given in lab by Anesthesia, LOOP TACKER via Peripheral IV. Ordered by Gerardo Alvarez . Reason: As per 7:27:10 physicians verbal order. 7:31:19 MD arrived. 7:34:27 2% CHLORHEXIDINE GLUCONATE WASH AND NASAL SWIPE DONE PRIOR TO PROCEDURE. First Sponge And Instrument Count Done by Tram Montgomery, RT(R) TECH2. 7:34:36 Hypo's: 4, Sponges: 30, Bovie/scratch: 2 Sutures: 5, Blades: 2, Instruments: 26, Syveck Patches: 0 7:45:11 Immediate Presedation assesment performed by physician. Time Out. Correct patient, procedure, procedure equipment, site and side verified with physician present. Time 7:45:19 concurred by MD, individual staff and LOOP TACKER. Time Out #2 - Consents verified, patient in correct position, all results are labled and display ed, safety precautions 7:45:24 taken, antibiotics administered. Time out concurred by MD, individual staff and LOOP TACKER in procedur e 7:45:28 Case Start 50 mL 2% XYLOCAINE given in lab by Gerardo Alvarez via Subcutaneous. Ordered by Gerardo Alvarez. [place] son: For pain. 7:45:32 left upper chest 7:47:33 Surgical Incision Made. 7:50:22 A pocket was created at the Lt. upper chest. 7:57:57 Vascular access was obtained in the Subclav. Vein (Lft. 7:58:03 Vascular access was obtained in the Subclav. Vein (Lft. 7:58:20 A SAFE SHEATH, FR7, 13CM FR 7 was advanced into the Subclav. Vein (Lft using the Percutaneou s technique. 7:59:26 A LEAD, CAPSURE FIX NOVUS, 52CM 52CM was inserted and positioned in the RV. 7:59:36 Lead placement verified under fluoroscopy 8:00:35 Reference ECG taken 8:02:17 The RV lead impedance and threshold being tested. 8:03:00 The RV lead was sutured to the fascia. 8:05:20 A SAFE SHEATH, FR7, 13CM FR 7 was advanced into the Subclav. Vein (Lft using the Percutane ous technique. 8:05:58 A LEAD, CAPSURE FIX NOVUS, 45CM 45CM was inserted and positioned in the RA. 8:06:35 Lead placement verified under fluoroscopy 8:06:37 The Atrial lead impedance and threshold is being tested. 8:10:07 The Atrial lead was sutured to the fascia. 8:11:24 Pocket flushed with antibiotic solution 8:11:26 A PACEMAKER, VOLODYMYR OWENSA-DDDR was connected and placed in the pocket. Second Sponge And Instrument Count Done by Jess Vargas RN. 8:17:57 Hypo's: 4, Sponges: 30, Bovie/scratch: 2 Sutures: ~SUTURE~, Blades: 2, Instruments: 26, Syveck Patches: ~SYVECK PATCH~ 8:18:32 The pocket was closed. 8:18:36 Implant Procedure was performed. 8:18:45 A PPM Implant . (Dual) Final Sponge And Instrument Count Done by Jess Vargas RN. 8:28:37 Hypo's: 4, Sponges: 30, Bovie/scratch: 2 Sutures: ~SUTURE~, Blades: 2, Instruments: 26, Syveck Patches: ~SYVECK PATCH~ 8:29:10 Bedside Report will be given. 8:37:28 Steri-strips and a sterile dressing applied to site. 8:38:06 DOCU called. Spoke to Adie 8:38:33 A sling was placed on the affected arm. 8:45:29 Case End Assessment: Final Case, HR=83 BPM, SBAB=336/65 mmhg, Chest Pain=0, Edema=None, Color=Normal, S kin = Warm, Dry 8:47:04 Neurological: State=Alert, Ox3, HASSAN Respiration: Resp=20 B/min, SpO2=99 % 8:48:29 No case complications noted. 8:48:33 Cine recording checked. 8:48:42 Holding Area notified of successful intervention. 8:49:30 Defibrillator and ground pads removed. Skin intact. 8:51:04 Patient moved to stretcher and transported to DOCU in stable condition. End Study - Contrast Media Used In Study Contrast Total Opened (mL) Total Used (mL) Total Wasted (mL) Unspecified 0 0 0 End Study - Maximum Contrast Load Max Contrast Load (mL) 166.7 End Study - Radiation Exposure Fluoro Time (minutes) 3.4 End Study - Patient Disposition Complications Transferred To Interventional Outcome No Telemetry Bed successful
[2017-07-24] MEDS: ASPIRIN 325 MG TAB PO SCH (09:00)
[2017-07-24] MEDS: GLIPIZIDE 2.5 MG PO SCH (09:00)
[2017-07-24] MEDS ORDERED: ACETAMINOPHEN 325 MG TAB PO PRN (09:00)
[2017-07-24] MEDS ORDERED: traMADol HCL 50 MG TAB PO PRN (09:00)
[2017-07-24] MEDS ORDERED: BACITRACIN OINT 0.9 GM PKT TOP PRN (09:00)
[2017-07-24] MEDS: SODIUM CHLORIDE 0.9% FLUSH 10 ML FLUSH IV FLUSH SCH ×2 (09:00→21:28)
[2017-07-24] MEDS ORDERED: DO NOT ADM ANY ANTICOAGULANT DRUGS PRN (09:00)
--- NOTE | 2017-07-24 10:15 | RADRPT ---
EXAM DATE/TIME: 07/24/2017 09:42 [place] COMPARISON: CHEST PA & LAT, July 22, 2017, 16:01. INDICATIONS : Post pacemaker. Shortness of breath. MEDICAL HISTORY : Hypertension. Hypercholesterolemia. Coronary artery disease. Diabetes. SURGICAL HISTORY : Pacemaker. ENCOUNTER: Initial ACUITY: 1 day PAIN SCORE: 0/10 LOCATION: Bilateral chest FINDINGS: Interval placement of dual-lead pacemaker with leads projecting over the right atrium and ventricle. No significant pneumothorax. Cardiomediastinal contours are stable. Remainder of the exam is unchange d. CONCLUSION: 1. Dual-lead pacemaker in place without significant pneumothorax. Ike Krueger MD on July 24, 2017 at 10:11 Board Certified Radiologist. This report was verified electronically.
--- NOTE | 2017-07-24 10:18 | MB ---
cc: KITTY RIGGINS M.D. DATE OF CONSULTATION: 07/23/2017 REASON FOR CONSULTATION: Evaluation of pacemaker. HISTORY OF PRESENT ILLNESS: This is an 89-year-old man with hypertension, right bundle-branch block. Aortic stenosis which is not severe. He has been having problems with arrhythmias. He has had profound bradycardia into the 30s and now has also had atrial fibrillation with rapid ventricular response. He has been diagnosed with sick sinus syndrome manifesting as atrial fibrillation with rapid rate and sinus bradycardia and Dr. Aguilar has appropriately requested a pacemaker. PAST MEDICAL HISTORY: past medical history includes his Valvular heart disease described above. Hypertension. MEDICATIONS PRIOR TO ADMISSION 1. Aspirin. 2. Atorvastatin. ALLERGIES HYDRALAZINE PHYSICAL EXAMINATION IN GENERAL: Reveals an elderly alert white male. VITAL SIGNS: Vital signs: Charted. HEAD, EYES, EARS, NOSE, AND THROAT: Exam unremarkable. NECK: No JVD. CHEST: The chest is clear to auscultation. CARDIAC: Exam S1-S2 regular rate and rhythm, 2/6 systolic murmur. ABDOMEN: Soft. EXTREMITIES: No edema. LABORATORY FINDINGS: The Laboratories are charted. IMPRESSION/PLAN: Sick sinus syndrome with tachybrady, I agree with Dr. Aguilar that he needs a pacemaker. I have obtained the informed consent myself. I have gone over the risks of procedure including , pneumothorax, hemothorax, bleeding, the chest has been marked planned to implant on the left side, this procedure scheduled tomorrow morning at 7:30, creatinine elevated so we will try to obtain venous access without contrast injection but if need be. I will have him hydrated to prevent a small bolus of dye to eliminate his subclavian vein. After the procedure it will be easier to medicate his rapid Atrial fibrillation and we can initiate anticoagulation. Thank you for the referral. MD ISAAC Nelson/eh /6:28 PM /9:37 AM
--- NOTE | 2017-07-24 11:50 | HHI.PR ---
Subjective Remarks Follow-up for bradycardia Patient was seen right after pacemaker placement. He is asking for pain medication due to discomfort at the site. Otherwise he has no other complaints. Discussed case with patient's nurse who stated that striker off wants dessert patient until tomorrow. Objective Vitals Vital Signs Date Time Temp Pulse Resp B/P (MAP) Pulse Ox O2 Delivery O2 Flow Rate FiO2 07/24/17 09:04 96 Room Air 07/24/17 04:00 87 07/24/17 02:58 98.4 76 17 141/67 (91) 97 07/24/17 00:00 81 07/23/17 22:57 98.3 85 17 161/76 (104) 96 07/23/17 20:02 110 07/23/17 19:48 98.1 86 17 193/79 (117) 97 07/23/17 17:00 168/79 (108) 07/23/17 15:38 98.2 84 20 184/79 (114) 97 07/23/17 15:03 98 07/23/17 11:55 97.6 107 24 136/91 (106) 97 I/O 07/23/17 07/23/17 07/23/17 07/24/17 07/24/17 07/24/17 07:00 15:00 23:00 07:00 15:00 23:00 Intake Total 240 ml Output Total 550 ml 250 ml Balance -550 ml -10 ml Intake Oral 240 ml Output Urine Total 550 ml 250 ml Result Diagram: 07/24/17 0602 07/24/17 0602 Imaging Last Impressions Chest X-Ray 07/24/17 0000 Signed Impressions: Service Date/Time: Monday, July 24, 2017 09:42 - CONCLUSION: 1. Dual- lead pacemaker in place without significant pneumothorax. Ike Krueger MD Objective Remarks GENERAL: in NAD CARDIOVASCULAR: Regular rate and rhythm without murmurs, gallops, or rubs. Pacemaker in place and covered with bandages. RESPIRATORY: Breath sounds equal bilaterally. No accessory muscle use. GASTROINTESTINAL: Abdomen soft, non-tender, nondistended. Medications and IVs Current Medications Enalaprilat (Vasotec Inj) 1.25 mg ONCE ONCE IV PUSH ; Start 07/22/17 at 17:00 ; Stop 07/22/17 at 17:01; Status DC Sodium Chloride (NS Flush) 2 ml UNSCH PRN IV FLUSH FLUSH AFTER USING IV ACCESS ; Start 07/22/17 at 18:00 Sodium Chloride (NS Flush) 2 ml BID IV FLUSH Last administered on 07/23/17 22 :01; Start 07/22/17 at 21:00 Naloxone HCl (Narcan Inj) 0.4 mg UNSCH PRN IV PUSH SEE LABEL COMMENTS; Start 07/22/17 at 18:00 Atropine Sulfate (Atropine Inj) 0.5 mg Q2H PRN IV PUSH hr<35 or HR< 40symptomatic; Start 07/22/17 at 18:00 Magnesium Sulfate/ Dextrose 100 ml @ 100 mls/hr Q1H IV Last administered on 03:53; Start 07/22/17 at 18:00; Stop 07/22/17 at 19:59; Status DC Calcium Gluconate 2 gm/Dextrose 120 ml @ 120 mls/hr ONCE ONCE IV Last administered on 07/23/17 00:05; Start 07/22/17 at 18:00; Stop 07/22/17 at 18 :59; Status DC Dextrose (D50w (Vial) Inj) 50 ml UNSCH PRN IV PUSH HYPOGLYCEMIA-SEE COMMENTS; Start 07/22/17 at 20:30 Glucagon (Glucagon Inj) 1 mg UNSCH PRN OTHER HYPOGLYCEMIA-SEE COMMENTS; Start 07/22/17 at 20:30 Insulin Aspart (NovoLOG SUPPLEMENTAL SCALE) 1 ACHS SLIDING SCALE SQ ; Start at 21:00 Nifedipine (Procardia Xl) 30 mg ONCE ONCE PO Last administered on 07/23/17 01:58; Start 07/23/17 at 01:30; Stop 07/23/17 at 01:36; Status DC Heparin Sodium (Porcine) (Heparin Inj) 5,000 units Q8HR SQ Last administered on 07/23/17 09:01; Start 07/23/17 at 09:00 Atorvastatin Calcium (Lipitor) 80 mg HS PO Last administered on 07/23/17 22: 01; Start 07/23/17 at 21:00 Aspirin (Aspirin) 325 mg DAILY PO Last administered on 07/23/17 08:59; Start 07/23/17 at 09:00 Patient Own Medication PT OWN MED: GLIPIZ... DAILY PO ; Start 07/23/17 at 09:00 Nifedipine (Procardia Xl) 30 mg ONCE ONCE PO Last administered on 07/23/17 06:19; Start 07/23/17 at 06:00; Stop 07/23/17 at 06:01; Status DC Diltiazem HCl (Cardizem) 30 mg QID PO Last administered on 07/23/17 22:01; Start 07/23/17 at 13:00; Stop 07/24/17 at 08:50; Status DC Sodium Chloride 1,000 ml @ 125 mls/hr Q8H IV Last administered on 07/23/17 23:47; Start 07/23/17 at 23:30 Cefazolin Sodium/ Dextrose 50 ml @ 100 mls/hr ANAESTHESIOLOGIST IV ; Start 07/23/17 at 13:00; Stop 07/26/17 at 12:59 Vancomycin HCl 1000 mg/Sodium Chloride 250 ml @ 250 mls/hr ANAESTHESIOLOGIST IV ; Start 07/23/17 at 13:00; Stop 07/27/17 at 12:59 Povidone Iodine (Betadine 5% Antisepsis Kit) 1 applic ANAESTHESIOLOGIST EACH NARE ; Start 07/23/17 at 13:00; Stop 07/27/17 at 12:59 Mupirocin (Bactroban Nasal 2% Oint) 1 applic ANAESTHESIOLOGIST NASAL ; Start 07/23/17 at 13:00; Stop 07/27/17 at 12:59 Chlorhexidine Gluconate (Chlorhexidine 2% Cloth) 3 pack ANAESTHESIOLOGIST TOP ; Start at 13:00; Stop 07/27/17 at 12:59 Temazepam (Restoril) 7.5 mg HS PRN PO SLEEP Last administered on 07/23/17 23: 45; Start 07/23/17 at 23:15 Lactated Ringer's 1,000 ml @ 30 mls/hr Q24H PRN IV SEE LABEL COMMENTS; Start 07/24/17 at 01:15; Stop 07/27/17 at 01:14 Sodium Chloride 500 ml @ 30 mls/hr [id number] PRN IV SEE LABEL COMMENTS; Start at 01:15; Stop 07/27/17 at 01:14 Metoprolol Tartrate (Lopressor) 25 mg ANAESTHESIOLOGIST PRN PO SEE LABEL COMMENTS; Start 07/24/17 at 01:15; Stop 07/27/17 at 01:14 Povidone Iodine (Betadine 5% Antisepsis Kit) 1 applic ANAESTHESIOLOGIST PRN EACH NARE SEE LABEL COMMENTS; Start 07/24/17 at 01:15; Stop 07/27/17 at 01:14 Chlorhexidine Gluconate (Chlorhexidine 2% Cloth) 3 pack ANAESTHESIOLOGIST PRN TOPICAL SEE LABEL COMMENTS; Start 07/24/17 at 01:15; Stop 07/27/17 at 01:14 Fentanyl Citrate (fentaNYL INJ) 100 mcg STK-MED ONCE .ROUTE ; Start 07/24/17 at 07:16; Stop 07/24/17 at 07:17; Status DC Midazolam HCl (Versed Inj) 2 mg STK-MED ONCE .ROUTE ; Start 07/24/17 at 07:16; Stop 07/24/17 at 07:17; Status DC Propofol (Diprivan 200 Mg/20 ml Inj) 400 mg STK-MED ONCE .ROUTE ; Start at 07:16; Stop 07/24/17 at 07:17; Status DC Vancomycin HCl (Vancomycin Inj) 1,000 mg STK-MED ONCE .ROUTE Last administered on 07/24/17 07:45; Start 07/24/17 at 07:18; Stop 07/24/17 at 07:19; Status DC Vancomycin HCl (Vancomycin Inj) 500 mg STK-MED ONCE .ROUTE Last administered on 07/24/17 07:18; Start 07/24/17 at 07:18; Stop 07/24/17 at 07:19; Status DC Lidocaine HCl (Xylocaine 2% Inj) 50 ml STK-MED ONCE .ROUTE ; Start 07/24/17 at 07:18; Stop 07/24/17 at 07:19; Status DC Cefazolin Sodium (Ancef Inj) 2,000 mg STK-MED ONCE .ROUTE Last administered on 07/24/17 07:45; Start 07/24/17 at 07:18; Stop 07/24/17 at 07:19; Status DC Sodium Chloride 250 ml @ As Directed STK-MED ONCE .ROUTE ; Start 07/24/17 at 07:18; Stop 07/24/17 at 07:19; Status DC Acetaminophen (Tylenol) 650 mg Q4H PRN PO PAIN SCALE 1 TO 5; Start 07/24/17 at 09:00 Tramadol HCl (Ultram) 25 mg Q4H PRN PO PAIN SCALE 1 TO 5; Start 07/24/17 at 09 :00; Status UNV Bacitracin (Bacitracin Oint Packet) 0.9 gm UNSCH PRN TOP SEE LABEL COMMENTS; Start 07/24/17 at 09:00 Diltiazem HCl (Cardizem Cd) 240 mg DAILY PO Last administered on 07/24/17t 12: 02; Start 07/24/17 at 10:00 Miscellaneous Information ALL NURSING DEPARTME... UNSCH PRN .XX SEE LABEL COMMENTS; Start 07/24/17 at 09:00; Stop 07/25/17 at 08:59 Acetaminophen/ Hydrocodone Bitart (Anna 5-325 Mg) 1 tab Q4H PRN PO pain 1-7; Start 07/24/17 at 12:00; Status UNV Acetaminophen/ Hydrocodone Bitart (Anna 10-325 Mg) 1 tab Q4H PRN PO pain 8-10 ; Start 07/24/17 at 12:00; Status UNV A/P Problem List: (1) Symptomatic sinus bradycardia ICD Code: R00.1 - Bradycardia, unspecified Status: Acute (2) Type 2 diabetes mellitus ICD Code: E11.9 - Type 2 diabetes mellitus without complications Status: Chronic (3) Hypertensive urgency ICD Code: I16.0 - Hypertensive urgency (4) Hypomagnesemia ICD Code: E83.42 - Hypomagnesemia (5) Hyperkalemia ICD Code: E87.5 - Hyperkalemia (6) Elevated troponin I level ICD Code: R74.8 - Abnormal levels of other serum enzymes (7) Acute on chronic renal failure ICD Code: N17.9 - Acute kidney failure, unspecified; N18.9 - Chronic kidney disease, unspecified Assessment and Plan Mr. Miller is a very pleasant 89 year-old male with a history of hyperlipidemia , hypertension, GERD, and type 2 diabetes mellitus who presented to the emergency room on 07/22/2017 to follow-up on an abnormal EKG done at his PCP Symptomatic bradycardia -Status post pacemaker done this morning. Management per striker off. Type 2 Diabetes Mellitus -Continue glipizide. - Heart healthy diet with 1800 ADA restrictions - Accu-Cheks before meals and at bedtime with low-dose NovoLog sliding scale coverage - Hypoglycemia protocol - Monitor trends and blood glucose readings and adjust treatments as indicated Hypertensive urgency - BP 212/88 on admission; 220/94 shortly after my visit -Improving on Procardia. Hypomagnesemia - Replenish as needed. Hyperkalemia - Initial potassium was 5.5 - however specimen was hemolyzed - Last potassium is 4.8. Chronic kidney failure - Uncertain of her baseline. No recent baseline. - This seems to be patient's baseline. -Continue strict ins and outs. Avoid nephrotoxins. Mild Anemia - most likely related to chronic kidney disease Mild thrombocytopenia -No signs of active bleeding. Stable. Follow-up as outpatient. DVT prophylaxis - Heparin 5000 units subq q8h Discharge Planning possible discharge tomorrow if cleared by striker off. Alessandra Montano MD Jul 24, 2017 11:50
[2017-07-24] MEDS ORDERED: ACETAMINOPHEN/HYDROcodone 325 MG/10 MG TAB PO PRN (12:00)
[2017-07-24] MEDS: DILTIAZEM-CD 240 MG CAP ER PO SCH (12:02)
[2017-07-24] MEDS: METOPROLOL TARTRATE 25 MG TAB PO SCH ×2 (13:21→21:28)
[2017-07-24] MEDS ORDERED: DILTIAZEM HCL 25 MG/5 ML VIAL IV ONE (14:00)
[2017-07-24] MEDS: SODIUM CHLOR 0.9% 1000 ML INJ 1,000 ML IV SCH ×2 (15:30→23:30)
[2017-07-24] MEDS: ATORVASTATIN 80 MG TAB PO SCH (21:28)
[2017-07-24] MEDS: TEMAZEPAM 7.5 MG CAP PO PRN (21:37)
--- NOTE | 2017-07-24 22:28 | EKG ---
Date Performed: 07/24/2017 Time Performed: 09:13:26 PTAGE: 89 years EKG: Probable atrial fibrillation with demand V-pacing Indeterminate axis IV conduction defect A nterolateral infarct - age undetermined Inferior ST-T changes are nonspecific Abnormal ECG PREVIOUS TRACING : 07/23/2017 11.51 Comparison difficult as beats from the precordial are Vpace d, but otherwise no change DOCTOR: Clarke Miller Interpretating Date/Time 07/24/2017 22:27:42
[2017-07-24] MEDS: ACETAMINOPHEN/HYDROcodone 325 MG/5 MG TAB PO PRN (23:23)
--- NOTE | 2017-07-24 23:49 | EKG ---
Date Performed: 07/23/2017 Time Performed: 11:51:14 PTAGE: 89 years EKG: ATRIAL FIBRILLATION WITH ABERRANT CONDUCTION OR VENTRICULAR PREMATURE COMPLEXES RIGHT BUNDL E BRANCH BLOCK INFERIOR MYOCARDIAL INFARCTION ABNORMAL ECG PREVIOUS TRACING : 07/22/2017 15.53 Compared to the previous tracing, now noted to be in Afib DOCTOR: Clarke Miller Interpretating Date/Time 07/24/2017 23:48:20
[2017-07-25] VITALS (15 sets, daily range): BP systolic 145–157; BP diastolic 58–70; PULSE 58–76; RESP 18–20; TEMP 97.5–98.1; O2SAT 94–95
[2017-07-25] MEDS: HEPARIN SODIUM - SQ 10,000 UNITS/ML VIAL SQ SCH (05:52)
[2017-07-25] MEDS: ACETAMINOPHEN/HYDROcodone 325 MG/5 MG TAB PO PRN (06:31)
[2017-07-25] MEDS: SODIUM CHLOR 0.9% 1000 ML INJ 1,000 ML IV SCH (07:30)
[2017-07-25] MEDS: INSULIN ASPART SUPPLEMENTAL SCALE SQ SCH (08:00)
[2017-07-25] MEDS: SODIUM CHLORIDE 0.9% FLUSH 10 ML FLUSH IV FLUSH SCH (08:41)
[2017-07-25] MEDS: ASPIRIN 325 MG TAB PO SCH (08:41)
[2017-07-25] MEDS: DILTIAZEM-CD 240 MG CAP ER PO SCH (08:41)
[2017-07-25] MEDS: METOPROLOL TARTRATE 25 MG TAB PO SCH (08:41)
[2017-07-25] MEDS: GLIPIZIDE 2.5 MG PO SCH (08:42)
--- NOTE | 2017-07-25 11:28 | PD.CARD.PN ---
Subjective Subjective Remarks No complaints Objective Medications Current Medications Medications (Trade) Dose Ordered Sig/Berny Route Start Time Stop Time Status Last Admin (NS Flush) 2 ml UNSCH PRN IV FLUSH 07/22/17 18:00 (NS Flush) 2 ml BID IV FLUSH 07/22/17 21:00 07/25/17 08:41 (Narcan Inj) 0.4 mg UNSCH PRN IV PUSH 07/22/17 18:00 (Atropine Inj) 0.5 mg Q2H PRN IV PUSH 07/22/17 18:00 (D50w (Vial) Inj) 50 ml UNSCH PRN IV PUSH 07/22/17 20:30 (Glucagon Inj) 1 mg UNSCH PRN OTHER 07/22/17 20:30 (NovoLOG SUPPLEMENTAL SCALE) 1 ACHS SLIDING SCALE SQ 07/22/17 21:00 (Heparin Inj) 5,000 units Q8HR SQ 07/23/17 09:00 07/23/17 09:01 (Lipitor) 80 mg HS PO 07/23/17 21:00 07/24/17 21:28 Patient Own Medication PT OWN MED: GLIPIZ... DAILY PO 07/23/17 09:00 Sodium Chloride 1,000 ml @ 125 mls/hr Q8H IV 07/23/17 23:30 07/23/17 23:47 Cefazolin Sodium/ Dextrose 50 ml @ 100 mls/hr MAINTENANCE ASSISTANT IV 07/23/17 13:00 07/26/17 12:59 Vancomycin HCl 1000 mg/Sodium Chloride 250 ml @ 250 mls/hr MAINTENANCE ASSISTANT IV 07/23/17 13:00 07/27/17 12:59 (Betadine 5% Antisepsis Kit) 1 applic MAINTENANCE ASSISTANT EACH NARE 07/23/17 13:00 07/27/17 12:59 (Bactroban Nasal 2% Oint) 1 applic MAINTENANCE ASSISTANT NASAL 07/23/17 13:00 07/27/17 12:59 (Chlorhexidine 2% Cloth) 3 pack MAINTENANCE ASSISTANT TOP 07/23/17 13:00 07/27/17 12:59 (Restoril) 7.5 mg HS PRN PO 07/23/17 23:15 07/24/17 21:37 Lactated Ringer's 1,000 ml @ 30 mls/hr Q24H PRN IV 07/24/17 01:15 12/25/17 01:14 Sodium Chloride 500 ml @ 30 mls/hr [id number] PRN IV 07/24/17 01:15 07/27/17 01:14 (Lopressor) 25 mg MAINTENANCE ASSISTANT PRN PO 07/24/17 01:15 07/27/17 01:14 (Betadine 5% Antisepsis Kit) 1 applic MAINTENANCE ASSISTANT PRN EACH NARE 07/24/17 01:15 07/27/17 01:14 (Chlorhexidine 2% Cloth) 3 pack MAINTENANCE ASSISTANT PRN TOPICAL 07/24/17 01:15 07/27/17 01:14 (Bacitracin Oint Packet) 0.9 gm UNSCH PRN TOP 07/24/17 09:00 (Cardizem Cd) 240 mg DAILY PO 07/24/17 10:00 07/25/17 08:41 ([place] 5-325 Mg) 1 tab Q4H PRN PO 07/24/17 12:00 07/25/17 06:31 ([place] 10-325 Mg) 1 tab Q4H PRN PO 07/24/17 12:00 07/24/17 13:20 (Lopressor) 25 mg Q12HR PO 07/24/17 14:00 07/25/17 08:41 (Eliquis) 2.5 mg BID PO 07/25/17 11:30 UNV Vital Signs / I&O Vital Signs Date Time Temp Pulse Resp B/P (MAP) Pulse Ox O2 Delivery O2 Flow Rate FiO2 07/25/17 07:46 97.5 66 20 157/58 (91) 95 07/25/17 06:00 74 07/25/17 05:00 62 07/25/17 04:00 66 07/25/17 03:00 60 07/25/17 03:00 98.1 67 18 145/70 (95) 94 07/25/17 02:00 58 07/25/17 01:00 58 07/25/17 00:36 18 07/25/17 00:00 58 07/24/17 23:00 99.0 60 18 141/71 (94) 94 07/24/17 23:00 60 07/24/17 22:00 60 07/24/17 21:00 60 07/24/17 20:00 60 07/24/17 19:00 98.0 60 18 130/60 (83) 95 07/24/17 19:00 64 07/24/17 17:00 64 07/24/17 16:00 62 07/24/17 15:00 68 07/24/17 14:00 88 07/24/17 13:26 146/64 (91) 07/24/17 13:00 114 07/24/17 12:03 111 17 195/98 (130) 98 177/81 (113) 07/24/17 12:00 108 I/O 07/24/17 07/24/17 07/24/17 07/25/17 07/25/17 07/25/17 07:00 15:00 23:00 07:00 15:00 23:00 Intake Total 240 ml 240 ml Output Total 250 ml 150 ml Balance -10 ml 90 ml Intake Oral 240 ml 240 ml Output Urine Total 250 ml 150 ml # Voids 1 Physical Exam Alert chest clear pacer wound looks perfect - no hematoma CV S1S2 irr irr Pacer check R wave only 2.5mV but everything else perfect. CXR optimal. Laboratory Current Medications Medications (Trade) Dose Ordered Sig/Berny Route Start Time Stop Time Status Last Admin (NS Flush) 2 ml UNSCH PRN IV FLUSH 07/22/17 18:00 (NS Flush) 2 ml BID IV FLUSH 07/22/17 21:00 07/25/17 08:41 (Narcan Inj) 0.4 mg UNSCH PRN IV PUSH 07/22/17 18:00 (Atropine Inj) 0.5 mg Q2H PRN IV PUSH 07/22/17 18:00 (D50w (Vial) Inj) 50 ml UNSCH PRN IV PUSH 07/22/17 20:30 (Glucagon Inj) 1 mg UNSCH PRN OTHER 07/22/17 20:30 (NovoLOG SUPPLEMENTAL SCALE) 1 ACHS SLIDING SCALE SQ 07/22/17 21:00 (Heparin Inj) 5,000 units Q8HR SQ 07/23/17 09:00 07/23/17 09:01 (Lipitor) 80 mg HS PO 07/23/17 21:00 07/24/17 21:28 Patient Own Medication PT OWN MED: GLIPIZ... DAILY PO 07/23/17 09:00 Sodium Chloride 1,000 ml @ 125 mls/hr Q8H IV 07/23/17 23:30 07/23/17 23:47 Cefazolin Sodium/ Dextrose 50 ml @ 100 mls/hr MAINTENANCE ASSISTANT IV 07/23/17 13:00 07/26/17 12:59 Vancomycin HCl 1000 mg/Sodium Chloride 250 ml @ 250 mls/hr MAINTENANCE ASSISTANT IV 07/23/17 13:00 07/27/17 12:59 (Betadine 5% Antisepsis Kit) 1 applic MAINTENANCE ASSISTANT EACH NARE 07/23/17 13:00 07/27/17 12:59 (Bactroban Nasal 2% Oint) 1 applic MAINTENANCE ASSISTANT NASAL 07/23/17 13:00 07/27/17 12:59 (Chlorhexidine 2% Cloth) 3 pack MAINTENANCE ASSISTANT TOP 07/23/17 13:00 07/27/17 12:59 (Restoril) 7.5 mg HS PRN PO 07/23/17 23:15 07/24/17 21:37 Lactated Ringer's 1,000 ml @ 30 mls/hr Q24H PRN IV 07/24/17 01:15 07/27/17 01:14 Sodium Chloride 500 ml @ 30 mls/hr [id number] PRN IV 07/24/17 01:15 07/27/17 01:14 (Lopressor) 25 mg MAINTENANCE ASSISTANT PRN PO 07/24/17 01:15 07/27/17 01:14 (Betadine 5% Antisepsis Kit) 1 applic MAINTENANCE ASSISTANT PRN EACH NARE 07/24/17 01:15 07/27/17 01:14 (Chlorhexidine 2% Cloth) 3 pack MAINTENANCE ASSISTANT PRN TOPICAL 07/24/17 01:15 07/27/17 01:14 (Bacitracin Oint Packet) 0.9 gm UNSCH PRN TOP 07/24/17 09:00 (Cardizem Cd) 240 mg DAILY PO 07/24/17 10:00 07/25/17 08:41 ([place] 5-325 Mg) 1 tab Q4H PRN PO 07/24/17 12:00 07/25/17 06:31 ([place] 10-325 Mg) 1 tab Q4H PRN PO 07/24/17 12:00 07/24/17 13:20 (Lopressor) 25 mg Q12HR PO 07/24/17 14:00 07/25/17 08:41 (Eliquis) 2.5 mg BID PO 07/25/17 11:30 UNV Imaging Last 48 hours Impressions Chest X-Ray 07/24/17 0000 Signed Impressions: Service Date/Time: Monday, July 24, 2017 09:42 - CONCLUSION: 1. Dual- lead pacemaker in place without significant pneumothorax. Ike Krueger MD Assessment and Plan Problem List: (1) Hypertension ICD Codes: I10 - Essential (primary) hypertension (2) Pacemaker ICD Codes: Z95.0 - Presence of cardiac pacemaker (3) Atrial fibrillation ICD Codes: I48.91 - Unspecified atrial fibrillation (4) Symptomatic sinus bradycardia ICD Codes: R00.1 - Bradycardia, unspecified Status: Acute Assessment and Plan OK to DC home. OV for pacer and wound check 07/30/2017. Meds: Eliquis 2.5 mg bid , Dilt 240mg daily, Metoprolol 25 mg bid PO. No ASA or NSAIDS. No other BP meds but these for now. Discussed Condition With daughter by phone Gerardo Alvarez MD Jul 25, 2017 11:28
[2017-07-25] MEDS ORDERED: APIXABAN 2.5 MG TABLET PO SCH (11:30)
[2017-07-25] MEDS ORDERED: METO25TA3 PO (12:28)
[2017-07-25] MEDS ORDERED: DILT240C44 PO (12:28)
[2017-07-25] MEDS ORDERED: APIX2.5T PO (12:28)
--- NOTE | 2017-07-25 12:31 | HHI.PR ---
Subjective Remarks Follow-up symptomatic sinus bradycardia 07/25/17-patient seen and examined, denies any shortness of breath or chest pain. No pain reported at incision site. Patient cleared for discharge by cardiology. Objective Vitals Vital Signs Date Time Temp Pulse Resp B/P (MAP) Pulse Ox O2 Delivery O2 Flow Rate FiO2 07/25/17 07:46 97.5 66 20 157/58 (91) 95 07/25/17 06:00 74 07/25/17 05:00 62 07/25/17 04:00 66 07/25/17 03:00 60 07/25/17 03:00 98.1 67 18 145/70 (95) 94 07/25/17 02:00 58 07/25/17 01:00 58 07/25/17 00:36 18 07/25/17 00:00 58 07/24/17 23:00 99.0 60 18 141/71 (94) 94 07/24/17 23:00 60 07/24/17 22:00 60 07/24/17 21:00 60 07/24/17 20:00 60 07/24/17 19:00 98.0 60 18 130/60 (83) 95 07/24/17 19:00 64 07/24/17 17:00 64 07/24/17 16:00 62 07/24/17 15:00 68 07/24/17 14:00 88 07/24/17 13:26 146/64 (91) 07/24/17 13:00 114 I/O 07/24/17 07/24/17 07/24/17 07/25/17 07/25/17 07/25/17 07:00 15:00 23:00 07:00 15:00 23:00 Intake Total 240 ml 240 ml Output Total 250 ml 150 ml Balance -10 ml 90 ml Intake Oral 240 ml 240 ml Output Urine Total 250 ml 150 ml # Voids 1 Result Diagram: 07/24/17 0602 07/24/17 0602 Imaging Last Impressions Chest X-Ray 07/24/17 0000 Signed Impressions: Service Date/Time: Monday, July 24, 2017 09:42 - CONCLUSION: 1. Dual- lead pacemaker in place without significant pneumothorax. Ike Krueger MD Objective Remarks GENERAL: NAD SKIN: Warm and dry. HEAD: Normocephalic. EYES: No scleral icterus. No injection or drainage. NECK: Supple, trachea midline. No JVD or lymphadenopathy. CARDIOVASCULAR: Regular rate and rhythm without murmurs, gallops, or rubs. pacemaker RESPIRATORY: Breath sounds equal bilaterally. No accessory muscle use. GASTROINTESTINAL: Abdomen soft, non-tender, nondistended. MUSCULOSKELETAL: No cyanosis, or edema. BACK: Nontender without obvious deformity. No CVA tenderness. Procedures Pacemaker implantation 07/24/17 A/P Problem List: (1) Symptomatic sinus bradycardia ICD Code: R00.1 - Bradycardia, unspecified Status: Acute (2) Type 2 diabetes mellitus ICD Code: E11.9 - Type 2 diabetes mellitus without complications Status: Chronic (3) Hypertensive urgency ICD Code: I16.0 - Hypertensive urgency (4) Hypomagnesemia ICD Code: E83.42 - Hypomagnesemia (5) Hyperkalemia ICD Code: E87.5 - Hyperkalemia (6) Elevated troponin I level ICD Code: R74.8 - Abnormal levels of other serum enzymes (7) Acute on chronic renal failure ICD Code: N17.9 - Acute kidney failure, unspecified; N18.9 - Chronic kidney disease, unspecified Assessment and Plan 89 year-old man with Symptomatic bradycardia -Status post pacemaker 07/24/17. Management per rural sociologist. Patient will be discharged home on Eliquis 2.5 mg twice a day, diltiazem 20-40 mg daily, Lopressor 25 mg twice a day Type 2 Diabetes Mellitus -Continue glipizide. - Heart healthy diet with 1800 ADA restrictions - Accu-Cheks before meals and at bedtime with low-dose NovoLog sliding scale coverage Hypertensive urgency - Resolved, continue with Lopressor 25 mg twice a day, diltiazem 2040 mg daily Hypomagnesemia - Resolved Hyperkalemia - Resolved Chronic kidney failure - Uncertain of her baseline. - This seems to be patient's baseline. -Continue strict ins and outs. Avoid nephrotoxins. Mild Anemia - most likely related to chronic kidney disease Mild thrombocytopenia -No signs of active bleeding. Stable. Follow-up as outpatient. DVT prophylaxis - Leobardo Ortega MD Jul 25, 2017 12:31
--- NOTE | 2017-07-25 12:34 | HHI.FF ---
Face to Face Verification Diagnosis: (1) Pacemaker (2) Symptomatic sinus bradycardia Home Health Nursing Order: Signs/symptoms of disease process I have seen patient Liam Miller on 07/25/17. My clinical findings support the need for the requested home health care services because: Patient has SOB I certify that my clinical findings support that this patient is homebound because: Poor cardiac reserve Leobardo Frye MD Jul 25, 2017 12:34
--- NOTE | 2017-07-25 12:37 | HHI.DS ---
Discharge Summary Admission Date Jul 22, 2017 at 17:59 Discharge Date: Jul 25, 2017 Admitting Diagnosis symptomatic bradycardia (1) Symptomatic sinus bradycardia ICD Code: R00.1 - Bradycardia, unspecified Status: Acute (2) Type 2 diabetes mellitus ICD Code: E11.9 - Type 2 diabetes mellitus without complications Status: Chronic (3) Hypertensive urgency ICD Code: I16.0 - Hypertensive urgency (4) Hypomagnesemia ICD Code: E83.42 - Hypomagnesemia (5) Hyperkalemia ICD Code: E87.5 - Hyperkalemia (6) Elevated troponin I level ICD Code: R74.8 - Abnormal levels of other serum enzymes (7) Acute on chronic renal failure ICD Code: N17.9 - Acute kidney failure, unspecified; N18.9 - Chronic kidney disease, unspecified Procedures Pacemaker implantation 07/24/17 Brief History - From Admission Mr. Miller is a very pleasant 89 year-old male with a history of hyperlipidemia , hypertension, GERD, and type 2 diabetes mellitus who presented to the emergency room on 07/22/2017 to follow-up on an abnormal EKG done at his primary care physician Dr. Jennings's office. In the emergency room, a 12-lead EKG showed sinus bradycardia with right bundle branch block and a ventricular rate of 38 bpm. He is admitted for observation under the hospitalist team management for stabilization. The patient is seen in the CDU. He tells me that his amlodipine was discontinued because it caused severe ankle swelling and clonidine was doubled about 2-3 weeks ago by his head athletic trainer/strength coach Dr. Aguilar. Within days of this change, he noticed increasing episodes of dizziness that mostly occurred when he went from a sitting to standing position. He said he could feel his blood rising from his chest all the way up to his head and then he became extremely lightheaded and had to sit back down. He thought that his blood sugar might be low and so he would eat a piece of candy. His symptoms became progressively more frequent and he attempted to contact his head athletic trainer/strength coach. He had trouble reaching his head athletic trainer/strength coach and went to his primary care physician instead. When she saw what his heart rate was, she advised him to come straight to the emergency department for evaluation. His symptoms were not accompanied by diaphoresis, chest pain, shortness of breath, nausea, or vomiting. He denies any recent illness such as cold symptoms, cough, fever, or diarrhea. He states his symptoms have improved since he's been here at the hospital. CBC/BMP: 07/24/17 0602 07/24/17 0602 Significant Findings Laboratory Tests Test 07/22/17 16:15 07/22/17 23:18 07/23/17 07:43 07/24/17 06:02 Red Blood Count 3.45 MIL/MM3 (4.50-5.90) 3.18 MIL/MM3 (4.50-5.90) 3.13 MIL/MM3 (4.50-5.90) Hemoglobin 10.8 GM/DL (13.0-17.0) 10.0 GM/DL (13.0-17.0) 10.3 GM/DL (13.0-17.0) Hematocrit 33.4 % (39.0-51.0) 30.4 % (39.0-51.0) 29.9 % (39.0-51.0) Platelet Count 137 TH/MM3 (150-450) 107 TH/MM3 (150-450) 126 TH/MM3 (150-450) Mean Platelet Volume 11.8 FL (7.0-11.0) Neutrophils (%) (Auto) 71.8 % (16.0-70.0) 74.1 % (16.0-70.0) 73.9 % (16.0-70.0) Blood Urea Nitrogen 62 MG/DL (7-18) 58 MG/DL (7-18) 53 MG/DL (7-18) Creatinine 2.62 MG/DL (0.60-1.30) 2.44 MG/DL (0.60-1.30) 2.46 MG/DL (0.60-1.30) Albumin 3.0 GM/DL (3.4-5.0) Calcium Level 7.4 MG/DL (8.5-10.1) 8.0 MG/DL (8.5-10.1) 7.7 MG/DL (8.5-10.1) Magnesium Level 1.2 MG/DL (1.5-2.5) 1.3 MG/DL (1.5-2.5) Potassium Level 5.5 MEQ/L (3.5-5.1) Chloride Level 115 MEQ/L (98-107) 113 MEQ/L (98-107) 113 MEQ/L (98-107) Estimat Glomerular Filtration Rate 23 ML/MIN (>89) 25 ML/MIN (>89) 25 ML/MIN (>89) Protein Corrected Calcium 7.7 MG/DL (8.5-10.1) Troponin I 0.08 NG/ML (0.02-0.05) 0.07 NG/ML (0.02-0.05) 0.07 NG/ML (0.02-0.05) PE at Discharge GENERAL: NAD SKIN: Warm and dry. HEAD: Normocephalic. EYES: No scleral icterus. No injection or drainage. NECK: Supple, trachea midline. No JVD or lymphadenopathy. CARDIOVASCULAR: Regular rate and rhythm without murmurs, gallops, or rubs. pacemaker RESPIRATORY: Breath sounds equal bilaterally. No accessory muscle use. GASTROINTESTINAL: Abdomen soft, non-tender, nondistended. MUSCULOSKELETAL: No cyanosis, or edema. BACK: Nontender without obvious deformity. No CVA tenderness. Hospital Course Patient admitted and diagnosed with symptomatic sinus bradycardia for which cardiology was consulted and patient underwent left heart catheterization followed by pacemaker implantation. Patient conditions improved. He was treated with diltiazem 240 mg daily, Lopressor 25 mg twice a day with significant improvement of hypertensive urgency. He was also started on Eliquis prior to discharge. All electrolyte abnormalities were corrected accordingly. Patient was continued on his treatment for other chronic medical conditions. DVT and GI prophylaxis were provided. Recommended that no aspirin or NSAIDs given to the patient initially only continue with diltiazem 2040 mg daily, Lopressor 25 mg twice a day, Eliquis 2.5 mg twice a day until seen by cardiology. Pt Condition on Discharge: Stable Discharge Disposition: Disch w/ Home Health Serv Discharge Time: <= 30 minutes Discharge Instructions DIET: Follow Instructions for: Diabetic Diet Activities you can perform: Regular-No Restrictions Follow up Referrals: Cardiology - 1 Week PCP Follow-up - 1 Week New Medications: Apixaban (Eliquis) 2.5 Mg Tab 2.5 MG PO BID for Regulate Heart Beat, #60 TAB 11 Refills Diltiazem CD 24 HR (Diltiazem CD 24 HR) 240 Mg Caper 240 MG PO DAILY for Blood Pressure Management, #30 CAP 11 Refills Metoprolol Tartrate (Metoprolol Tartrate) 25 Mg Tab 25 MG PO Q12HR for Blood Pressure Management, #60 TAB 11 Refills Continued Medications: Allopurinol (Allopurinol) 100 Mg Tab 100 MG PO DAILY for Gout, #30 TAB 0 Refills Atorvastatin (Atorvastatin) 80 Mg Tab 80 MG PO HS for Cholesterol Management, #30 TAB 0 Refills Calcitriol (Calcitriol) 0.25 Mcg Cap 0.25 MCG PO DAILY for Calcium Supplement, #30 CAP 0 Refills Glipizide ER (Glipizide ER) 2.5 Mg Linda 2.5 MG PO DAILY for Blood Sugar Management, #30 TAB 0 Refills Take with breakfast or first main meal of the day Hydrocodone-Acetaminophen (Hydrocodone-Acetaminophen) 5-325 mg Tab 1 TAB PO Q4H PRN for PAIN, TAB 0 Refills Lorazepam (Lorazepam) 0.5 Mg Tab 0.5 MG PO DAILY PRN for ANXIETY, TAB 0 Refills Multiple Vitamin (Multi-Vitamin Daily) 1 Tab Tab 1 TAB PO DAILY for Nutritional Supplement, TAB 0 Refills Discontinued Medications: Aspirin (Aspirin) 325 Mg Tab 325 MG PO DAILY, #30 TAB 0 Refills Clonidine (Clonidine) 0.2 Mg Tab 0.2 MG PO BID for Blood Pressure Management, #60 TAB 0 Refills Losartan (Losartan) 100 Mg Tab 100 MG PO DAILY for Blood Pressure Management, #30 TAB 0 Refills Leobardo Frey MD Jul 25, 2017 12:37
--- NOTE | 2017-07-25 21:16 | MP ---
cc: KITTY RIGGINS DATE OF SURGERY 07/24/17 SURGEON Reinaldo Riggins MD PREOPERATIVE DIAGNOSIS Symptomatic bradycardia with sick sinus syndrome. POSTOPERATIVE DIAGNOSIS Symptomatic bradycardia with sick sinus syndrome. PROCEDURE Insertion of dual chamber rate responsive pacemaker. DESCRIPTION OF PROCEDURE The patient was brought to the cardiac lab rep in a fasting state. Sedation was provided by Anesthesia. He was prepped and draped sterile fashion. Using 1% lidocaine for local anesthesia, an incision was made parallel to and below the left clavicle. Using blunt and sharp dissection with Bovie for hemostasis, a pocket was fashioned above the pectoralis muscle. The left subclavian vein was then punctured twice with two guidewires placed into the superior vena cava. Over the first guidewire, a peel-away sheath was introduced and through this the ventricular lead was inserted and screwed to the lower septum with good sensing and pacing thresholds. Peel-away sheath was then removed. Over the second guidewire, a second peel-away sheath was introduced and through this the atrial lead was inserted and screwed into the right atrial appendage with excellent sensing. The peel-away sheath was then removed. Both leads were then secured to the underlying fascia using three 2-0 silk sutures for each Silastic cuff being careful to have the appropriate slack on both leads. The leads were then connected to the pacemaker generator which was positioned on the floor of the pocket with the leads coiled behind it. The wound was irrigated with antibiotic solution. The generator was secured to the floor of the pocket using a single 2-0 silk suture. The wound was then carefully closed in layers using interrupted 2-0 Vicryl sutures for the deep fascial layers, interrupted 3-0 Vicryl sutures for the subcutaneous layers followed by a running 4-0 Monocryl stitch. Estimated blood loss was only 10 mL. Both leads were tested at 10 volts with no diaphragmatic pacing. Stat chest x-ray is pending. MD ISAAC Nelson/ /8:39 AM /8:45 PM
--- NOTE | 2017-07-28 17:22 | EKG ---
Date Performed: 07/25/2017 Time Performed: 07:02:02 PTAGE: 89 years EKG: Atrial flutter with PVC(s) or aberrant ventricular conduction. 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 PREVIOUS TRACIN07/24/2017 09.13 DOCTOR: Nkechi Anderson Interpretating Date/Time 07/28/2017 17:20:46
== END 2017-07-25 14:10 | disposition home or self-care (01) ==
LOC: NEPE 15:32 → NEDA 17:59 → NEPFCDU 20:40 → HCIS 07-24 08:20
PROVIDERS: ADMIT Hospitalist; ATTEND Hospitalist
DX: I49.5 Sick sinus syndrome (principal); R74.8 Abnormal levels of other serum enzymes; I16.0 Hypertensive urgency; E87.5 Hyperkalemia; E83.42 Hypomagnesemia; I48.91 Unspecified atrial fibrillation; N18.9 Chronic kidney disease, unspecified; E11.22 Type 2 diabetes mellitus with diabetic chronic kidney disease; I12.9 Hypertensive chronic kidney disease with stage 1 through stage 4 chronic kidney disease, or unspecified chronic kidney disease; N17.9 Acute kidney failure, unspecified
CPT/HCPCS: 00530; 33208; 71010; 71020; 80048; 80053; 82550; 82552; 82948; 83735; 84484; 85025; 85610; 85730; 93005; 96361; 96365; 96366; 96372; 96375; 99285; C1785; C1898; G0378; J0610; J0690; J1644; J2250; J3010; J3370; J3475; J7030; J7050